=== PATIENT | female | born 1950 | race Caucasian/White ===

== ENCOUNTER 2020-02-17 17:04 | Emergency (ER) | payer MEDICARE, BC, SELFPAY ==
[2020-02-17] VITALS (8 sets, daily range): BP systolic 114–140; BP diastolic 49–71; PULSE 77–88; RESP 14–18; TEMP 37.9; O2SAT 96–99; BMI 34.0
--- NOTE | 2020-02-17 18:22 | CTR_ITS ---
PROCEDURE INFORMATION: Exam: CT Head Without Contrast Exam date and time: 02/17/2020 6:32 PM Age: 69 years old Clinical indication: Altered mental status/memory loss; Confusion or disorientation; Patient HX: C/O MURRAY w AMS; Additional info: Headache altered mental status TECHNIQUE: Imaging protocol: Computed tomography of the head without contrast. Radiation optimization: All CT scans at this facility use at least one of these dose optimization techniques: automated exposure control; mA and/or kV adjustment per patient size (includes targeted exams where dose is matched to clinical indication); or iterative reconstruction. COMPARISON: No relevant prior studies available. RADIATION DOSE METRICS: Total DLP (mGy-cm): 1465.68 FINDINGS: Brain: There is mild cortical atrophy. No hemorrhage. Unremarkable white matter. No mass effect. Cerebral ventricles: No ventriculomegaly. Bones/joints: Unremarkable. No acute fracture. Paranasal sinuses: Visualized sinuses are unremarkable. No fluid levels. Mastoid air cells: Visualized mastoid air cells are well aerated. Soft tissues: Unremarkable. CT/CT head wo con* [id number] IMPRESSION: No acute intracranial abnormality. Radiation Dose CTDIVOL = (mGy): DLP = 1465.68 (mGy-cm)
--- NOTE | 2020-02-17 18:22 | XRR_ITS ---
PROCEDURE INFORMATION: Exam: XR Chest, 1 View Exam date and time: 02/17/2020 6:32 PM Age: 69 years old Clinical indication: Shortness of breath; Additional info: Fever TECHNIQUE: Imaging protocol: XR of the chest Views: 1 view. COMPARISON: CT chest con [id number] 11/03/2018 4:10 PM FINDINGS: Lungs: Unremarkable. No consolidation. Pleural space: Unremarkable. No pleural effusion. No pneumothorax. Heart/Mediastinum: Unremarkable. No cardiomegaly. Bones/joints: Unremarkable. XR/XR chest 1V portable [id number] IMPRESSION: No acute findings.
--- NOTE | 2020-02-17 18:25 | ECG_ITS ---
[facility] Test Date: 2020-02-17 Pat Name: Rubia Mora Department: Room: Gender: Female Contact Center Consultant: : [id number] Requested By: Nabil Mondragon Order Number: [id number] Henry MD: VICKI CANALES Measurements Intervals [place] Rate: 79 P: 26 MT: 180 QRS: -24 QRSD: 92 T: 11 QT: 381 QTc: 439 Interpretive Statements SINUS RHYTHM LOW QRS VOLTAGE IN PRECORDIAL LEADS [QRS DEFLECTION < 1.0 mV IN CHEST LEADS] MINIMAL VOLTAGE CRITERIA FOR LVH, CONSIDER NORMAL VARIANT [MEETS CRITERIA IN ONE OF: R(aVL), S(V1), R(V5), R(V5/V6)+S(V1)] POSSIBLE ANTERIOR MYOCARDIAL INFARCTION , PROBABLY OLD [30 ms Q WAVE IN V3/V4, OR R < 0.2 mV IN V4] No previous ECG available for comparison Electronically Signed On 02-18-2020 19:35:52 NIGHT COORDINATOR by VICKI CANALES [id number]
--- NOTE | 2020-02-17 18:44 | ED_ITS ---
HPI - General Adult General: Chief complaint: General Medical Stated complaint: cough/fever/fatigue/memory issues Time Seen by Provider: 02/17/20 17:39 History of Present Illness: HPI narrative: 69-year-old female with several day history of headache. She reports today she is run a fever of 100.5-1 01 or so. Her reported some mild mental status changes at home, meaning mild confusion. This seems to have passed now. She still complains of a headache. She also complains of a cough, which is dry. She initially denied known Covid exposure, but notes that they had family in from [place] last week, and one of the children had a positive test after they returned home. Onset (ago): day(s) Location: head Radiation: non-radiation Severity: moderate Quality: stabbing Relieving factors: none Exacerbating factors: none Associated symptoms: Reports cough, fevers/chills, headache(s), malaise, nausea and weakness (Generalized); Deny chest pain, dyspnea, palpitations or short of breath Review of Systems Const: Reports: fever(s), chills, body aches and malaise Eyes: Denies: blurry vision Card: Denies: chest pain or palpitations Resp: Denies: dyspnea GI: Reports: nausea : Denies: dysuria Neuro: Reports: headache(s) Physical Exam Const: GENERAL APPEARANCE: well developed ORIENTATION/CONSCIOUSNESS: Yes oriented to person, Yes oriented to place and Yes oriented to time HENMT: COMMON NORMALS: normocephalic, external ears normal and Normal external nose present HEAD & SCALP: normocephalic FACE & SINUS: normal facial exam NOSE: Normal external nose present and No nasal discharge present EXTERNAL EAR: Yes external ears normal THROAT: posterior oropharynx normal; no peritonsillar mass Eye: COMMON NORMALS: Equal, round and reactive pupils present, EOMs intact bilaterally and conjunctivae normal EYELID: eyelids normal CONJUNCTIVA: Yes conjunctivae normal PUPIL: Yes Equal, round and reactive pupils present Neck/C-Spine: GENERAL: No tracheal deviation Chest: COMMONS NORMALS: normal inspection of the chest CHEST: No tenderness Resp: COMMON NORMALS: clear to auscultation bilaterally EFFORT & INSPECTION: No tachypneic, No respiratory distress, No retractions, No uses accessory muscles and No tracheal deviation AUSCULTATION: clear to auscultation bilaterally, no rhonchi, no wheezes and lung sounds not diminished Cardio: COMMON NORMALS: regular rate and regular rhythm RATE: regular rate RHYTHM: regular rhythm HEART SOUNDS: no murmurs PERIPHERAL PULSES: radial pulses present GI: INSPECTION: No abdominal distension AUSCULTATION: No Hyperactive bowel sounds present and No Hypoactive bowel sounds present PALPATION: No Guarding due to palpation present (GI) and No Rigid due to palpation PERCUSSION: no dullness to percussion and no tympanic to percussion Neuro: SENSORIUM/ORIENTATION: Yes oriented to person, Yes oriented to place and Yes oriented to time Psych: COMMON NORMALS: mental status grossly normal Skin: COMMON NORMALS: no rashes or lesions noted GENERAL SKIN EXAM: no rashes or lesions noted Course Vital Signs: Vital signs: Vital Signs Temperature 100.3 F H 02/17/20 17:21 Pulse Rate 82 02/17/20 22:20 Respiratory Rate 18 02/17/20 22:20 Blood Pressure 114/49 02/17/20 22:20 Pulse Oximetry 96 02/17/20 22:20 MDM - General Adult MDM Narrative: Medical decision making narrative: Rapid Covid is negative. Her PCR is pending. White blood cell count is 11.2. Hemoglobin 9.6. Bicarbonate of 20. She is received some IV fluid here. She has received IV Rocephin for a mild urinary tract infection. Her chest x-ray shows no acute findings. Her head CT is negative. She will be discharged home. Lab Data: Labs: Lab Results 02/17/20 02/17/20 02/17/20 Range/Units 19:23 19:41 19:55 WBC 11.2 H (4.0-10.0) 10^3/ uL RBC 3.17 L (4.1-5.3) 10^6/u L Hgb 9.6 L (11.5-15.3) g/dL Hct 31.8 L (37.0-47.0) % MCV 100.3 H (81-99) fL MCH 30.3 (28.0-34.0) pg MCHC 30.2 (30.0-36.0) g/dL RDW 13.2 (12.1-15.1) % Plt Count 282 (130-400) 10^3/c mm MPV 9.8 (7.4-10.4) fL Neut % (Auto) 66.7 % Lymph % (Auto) 24.8 % Carlton % (Auto) 6.7 % Eos % (Auto) 0.9 % Baso % (Auto) 0.4 % Neut # (Auto) 7.44 (1.8-7.7) 10^3/u L Lymph # (Auto) 2.8 (0.8-4.8) 10^3/u L Carlton # (Auto) 0.8 (0.2-0.9) 10^3/u L Eos # (Auto) 0.1 (0.0-0.8) 10^3/u L Baso # (Auto) 0.0 (0.0-0.1) 10^3/u L Nucleated RBC % (a uto) 0 % Nucleated RBCs # 0.0 /100WBC D-Dimer (0-0.59) ug/mIFE U Sodium (136-145) mmol/L Potassium (3.5-5.1) mmol/L Chloride (98-107) mmol/L Carbon Dioxide (22-29) mmol/L Anion Gap (5-19) BUN (8-23) mg/dL Creatinine (0.5-0.9) mg/dL GFR Calculation (90-130) mL/min Glucose (65-115) mg/dL Calculated Osmolal ity (285-295) mOsm/k g Lactate (0.5-2.2) mmol/L Calcium (8.5-10.5) mg/dL Total Bilirubin (0.15-1.2) mg/dL AST (0-32) U/L ALT (0-33) U/L Alkaline Phosphata se (35-105) IU/L Creatine Kinase (26-192) U/L C-Reactive Protein (0.0-4.9) mg/L Total Protein (6.6-8.7) g/dL Albumin (3.5-5.2) g/dL Globulin (1.3-4.6) g/dL Procalcitonin (0-0.5) ng/mL Urine Color Yellow (Yellow) Urine Appearance Clear (CLEAR) Urine pH 9 H (5-7) Ur Specific Gravit y 1.015 (1.005-1.030) Urine Protein Neg (Negative) Urine Glucose (UA) Norm (Normal) Urine Ketones Negative (Negative) Urine Blood Neg (Negative) Urine Nitrate Negative (Negative) Urine Bilirubin Neg (Negative) Prot Sulfosalicyli c Acd Positive (Negative) Urine Urobilinogen Norm (Negative) mg/dL Ur Leukocyte Cally ase 2+ H (Negative) Urine RBC 0-4 H (0-2) /hpf Urine WBC 5-10 H (0-5) /hpf Ur Squamous Epith Cells 0-4 H (0-5) /hpf Amorphous Sediment Not Reportable Urine Bacteria 1+ H (NONE) /hpf Urine Mucus 1+ /hpf SARS-CoV-2 Ag (Rap id) Negative (Negative) 02/17/20 02/17/20 02/17/20 Range/Units 19:55 19:55 20:36 WBC (4.0-10.0) 10^3/ uL RBC (4.1-5.3) 10^6/u L Hgb (11.5-15.3) g/dL Hct (37.0-47.0) % MCV (81-99) fL MCH (28.0-34.0) pg MCHC (30.0-36.0) g/dL RDW (12.1-15.1) % Plt Count (130-400) 10^3/c mm MPV (7.4-10.4) fL Neut % (Auto) % Lymph % (Auto) % Carlton % (Auto) % Eos % (Auto) % Baso % (Auto) % Neut # (Auto) (1.8-7.7) 10^3/u L Lymph # (Auto) (0.8-4.8) 10^3/u L Carlton # (Auto) (0.2-0.9) 10^3/u L Eos # (Auto) (0.0-0.8) 10^3/u L Baso # (Auto) (0.0-0.1) 10^3/u L Nucleated RBC % (a uto) % Nucleated RBCs # /100WBC D-Dimer 0.73 H (0-0.59) ug/mIFE U Sodium 132 L (136-145) mmol/L Potassium 3.6 (3.5-5.1) mmol/L Chloride 101 (98-107) mmol/L Carbon Dioxide 20 L (22-29) mmol/L Anion Gap 14.6 (5-19) BUN 13 (8-23) mg/dL Creatinine 1.2 H (0.5-0.9) mg/dL GFR Calculation 44.7 L (90-130) mL/min Glucose 118 H (65-115) mg/dL Calculated Osmolal ity 275 L (285-295) mOsm/k g Lactate 0.9 (0.5-2.2) mmol/L Calcium 9.0 (8.5-10.5) mg/dL Total Bilirubin 0.2 (0.15-1.2) mg/dL AST 12 (0-32) U/L ALT 9 (0-33) U/L Alkaline Phosphata se 117 H (35-105) IU/L Creatine Kinase 33 (26-192) U/L C-Reactive Protein 216.2 H (0.0-4.9) mg/L Total Protein 7.3 (6.6-8.7) g/dL Albumin 3.4 L (3.5-5.2) g/dL Globulin 3.9 (1.3-4.6) g/dL Procalcitonin 0.47 (0-0.5) ng/mL Urine Color (Yellow) Urine Appearance (CLEAR) Urine pH (5-7) Ur Specific Gravit y (1.005-1.030) Urine Protein (Negative) Urine Glucose (UA) (Normal) Urine Ketones (Negative) Urine Blood (Negative) Urine Nitrate (Negative) Urine Bilirubin (Negative) Prot Sulfosalicyli c Acd (Negative) Urine Urobilinogen (Negative) mg/dL Ur Leukocyte Cally ase (Negative) Urine RBC (0-2) /hpf Urine WBC (0-5) /hpf Ur Squamous Epith Cells (0-5) /hpf Amorphous Sediment Urine Bacteria (NONE) /hpf Urine Mucus /hpf SARS-CoV-2 Ag (Rap id) (Negative) Discharge Plan Discharge Patient Disposition: Home Condition: Stable Prescriptions: New levofloxacin 500 mg tablet 500 mg PO DAILY 7 Days Qty: 7 RF: 0 Discharge Orders: Discharge Order (Routine); Ordered 02/17/20 Ordered By: Nabil Thomas Referrals: Shreya Marcos MD [Primary Care Provider] - 1-3 days Discharge Diet: Advance as tolerated Discharge Activity: Increase activity as tolerated Patient Instructions: Urinary Tract Infection in Women (ED) Activity Restrictions/Additional Instructions: Return for worsening mental status, continued fever greater than 100 despite 2-3 doses of antibiotics, shortness of breath cough or other concerning symptoms. Please continue to quarantine at home until you are second Covid test comes back negative. Discharge Date/Time: 02/17/20 22:21 Coding Level of Care Code ED [employer] Operator for Gerardo Fwd Exam Comprehensive
[2020-02-17] MEDS: sodium chloride 0.9% 500 ML IV (19:29)
[2020-02-17 20:33] LABS: Basophils % 0.4 %; Eosinophils # 0.1 10^3/uL (0.0-0.8); Eosinophils % 0.9 %; Hematocrit 31.8 % (37.0-47.0); Hemoglobin 9.6 g/dL (11.5-15.3); Lymphocytes # 2.8 10^3/uL (0.8-4.8); Lymphocytes % 24.8 %; Mean Corpuscular HGB Conc 30.2 g/dL (30.0-36.0); Mean Corpuscular Hemoglobin 30.3 pg (28.0-34.0); Mean Corpuscular Volume 100.3 fL (81-99); Mean Platelet Volume 9.8 fL (7.4-10.4); Monocytes # 0.8 10^3/uL (0.2-0.9); Monocytes % 6.7 %; Neutrophils # 7.44 10^3/uL (1.8-7.7); Neutrophils % 66.7 %; Nucleated Red Blood Cells % 0 %; Platelet Count 282 10^3/cmm (130-400); Red Blood Count 3.17 10^6/uL (4.1-5.3); Red Cell Distribution Width 13.2 % (12.1-15.1); White Blood Count 11.2 10^3/uL (4.0-10.0)
[2020-02-17 20:39] LABS: SARS Covid-2 Antigen Negative (Negative)
[2020-02-17 20:41] LABS: Add Urine Microscopic? YES; Bilirubin Urine Neg (Negative); Blood Urine Neg (Negative); Glucose Urine UA Norm (Normal); Ketones Urine Negative (Negative); Leukocyte Esterase Urine 2+ (Negative); Nitrate Urine Negative (Negative); Protein Urine Neg (Negative); Specific Gravity, Urine 1.015 (1.005-1.030); Sulfosalicylic Acid Urine Positive (Negative); Urine Appearance Clear (CLEAR); Urine Color Yellow (Yellow); Urobilinogen Urine Norm (Negative); pH Urine 9 (5-7)
[2020-02-17 20:42] LABS: Add Urine Culture? No; Bacteria Urine 1+ /hpf; Mucus Urine 1+ /hpf; RBC Urine 0-4 /hpf (0-2); Squamous Epithelial Cell Urine 0-4 /hpf (0-5)
[2020-02-17 21:07] LABS: Procalcitonin 0.47 ng/mL (0-0.5)
[2020-02-17] MEDS: ondansetron 2 mg/ML SDV 2 mL 4 MG IVP (21:12)
[2020-02-17] MEDS: ketorolac 30 mg/mL INJ IVP (21:14)
[2020-02-17] MEDS: cefTRIAXone 1,000 MG in sodium chloride 0.9% (plus) 50 ML 100 MG IV (21:15)
[2020-02-17 21:19] LABS: Lactate (Lactic Acid level) 0.9 mmol/L (0.5-2.2)
[2020-02-17 21:20] LABS: Alanine Aminotransferase 9 U/L (0-33); Albumin Level 3.4 g/dL (3.5-5.2); Alkaline Phosphatase 117 IU/L (35-105); Anion Gap 14.6 (5-19); Aspartate Amino Transferase 12 U/L (0-32); Blood Urea Nitrogen 13 mg/dL (8-23); C Reactive Protein 216.2 mg/L (0.0-4.9); Carbon Dioxide 20 mmol/L (22-29); Chloride 101 mmol/L (98-107); Creatine Phosphokinase 33 U/L (26-192); Globulin 3.9 g/dL (1.3-4.6); Glomerular Filtration Rate 44.7 mL/min (90-130); Glucose 118 mg/dL (65-115); Osmolality Calculated 275 mOsm/kg (285-295); Potassium 3.6 mmol/L (3.5-5.1); Sodium 132 mmol/L (136-145); Total Bilirubin 0.2 mg/dL (0.15-1.2); Total Protein 7.3 g/dL (6.6-8.7)
[2020-02-17 21:25] LABS: D Dimer 0.73 ug/mIFEU (0-0.59)
[2020-02-19 12:23] LABS: Quest SARS-CoV-2 RNA NOT DETECTED (NOT DETECTED)
--- NOTE | 2020-02-19 18:37 | PC.NURSE ---
Pt called and notified of negative COVID result
--- NOTE | 2020-02-20 08:08 | PC.NURSE ---
pt contacted and given negative results of COVID screening. Pt verbalized understanding.
== END 2020-02-17 22:21 | disposition home or self-care (01) ==
PROVIDERS: Emergency Provider Emergency Medicine; PCP Internal Medicine
DX: R05 Cough (principal); R50.9 Fever, unspecified; R51.9 Headache, unspecified
CPT/HCPCS: 12345; 70450; 71045; 80053; 81001; 82550; 83605; 84145; 85025; 85378; 86140; 87040; 87205; 87426; 87635; 93005; 96365; 96375; 99284; J0696; J1885; J2405; J7040

== ENCOUNTER → 2020-03-20 14:44 | Outpatient (BNVA) | payer MEDICARE, BC, SELFPAY | PROVIDERS: PCP Internal Medicine; Visit Provider Internal Medicine | DX: D64.9 Anemia, unspecified (principal); R13.10 Dysphagia, unspecified; Z01.818 Encounter for other preprocedural examination | CPT/HCPCS: 82607; 82746; 83550; 84443; 85025; 85045 ==

== ENCOUNTER → 2020-03-24 12:17 | Outpatient (BNVA) | payer MEDICARE, BC, SELFPAY | PROVIDERS: PCP Internal Medicine; Visit Provider Internal Medicine | DX: Z20.828 Contact with and (suspected) exposure to other viral communicable diseases (principal); Z01.818 Encounter for other preprocedural examination | CPT/HCPCS: 87635 ==

== ENCOUNTER 2020-03-29 07:54 | Day surgery (SDC) | payer MEDICARE, BC, SELFPAY ==
[2020-03-27 12:41] VITALS: BMI 34.0
[2020-03-29 08:12] VITALS: BP 148/109; PULSE 93; RESP 18; TEMP 36.7; O2SAT 97
[2020-03-29] MEDS: sodium chloride 0.9% 1,000 ML 30 ML IV (08:30)
[2020-03-29 08:35] LABS: Glucose Point of Care 140 mg/dL (70-110)
--- NOTE | 2020-03-29 08:35 | ANES.PREANE2 ---
Pre-Anesthetic Assessment Pre-Anesthetic Assessment: Height/Weight: Height 1.75 m Weight 104.326 kg Temp Pulse Resp BP Pulse Ox 98.1 F 93 18 148/109 97 03/29/20 08:12 03/29/20 08:12 03/29/20 08:12 03/29/20 08:12 03/29/20 08:12 Preop Diagnosis: dysphagia and anemia Proposed Procedure: Operation Date: 03/29/20 09:00 Proposed Procedures p EGD 45143 34782 d64.9(Not Applicable) - Chino Waldrop MD s Colonoscopy(Not Applicable) - Chino Waldrop MD Familial anesthetic complications: None Was Beta Kylie taken within 24 hours: Yes Last intake: Intake NPO > 8 hrs Last Liquid Date 03/28/20 Last Solid Date 03/27/20 Social: Social History: No alcohol and No tobacco Exam: Pre-Anes Outpt Exam: alert, oriented x 3, clear to auscultation bilaterally and regular rate & rhythm Airway: Cervical ROM: WNL MP: 1 Dentition: Full CV/HEM: CV/HEM: HTN GI: GI: GERD Metabolic: Metabolic: DM, Hyperlipidemia and Thyroid Musc/skel: Musc/skel: Fibromyalgia Anesthetic Plan: ASA status: 2 Anesthesia: MAC Risk of > 500 ml blood loss (7ml/kg in children): No Meds/Allergies Current Medications: Current Medications Generic Name Dose Route Start Last Admin Trade Name Freq PRN Reason Stop Dose Admin Sodium Chloride 1,000 mls @ 30 ml s/hr 03/29/20 08:00 03/29/20 08:30 Sodium Chloride 0.9% IV 03/30/20 07:59 30 mls/hr .Q24H NILA Administration PFSH Anesthesia PFSH: Family History (Updated 03/20/20 @ 14:[address]) Father Cancer Heart disease Brother Diabetes Social History (Updated 03/20/20 @ 14:27 by TABITHA Domínguez) Smoking and tobacco status: never smoked Alcohol intake: current Alcohol intake frequency: holidays/special occasions only Marital status: Number of children: 2 service: No History of recent travel: No Data Anesthesia Cardiac Studies: No Data to Display
--- NOTE | 2020-03-29 09:09 | W.PM.OPSUD ---
Surgery/Procedure H&P Update DATE OF PROCEDURE: March 29, 2020 DATE H&P PERFORMED: 03/20/20 PREOP DIAGNOSIS: dysphagia and anemia PLANNED PROCEDURE: Operation Date: 03/29/20 09:00 Proposed Procedures p EGD [id number] d64.9(Not Applicable) - Chino Waldrop MD s Colonoscopy(Not Applicable) - Chino Waldrop MD
[2020-03-29 09:52] VITALS: BP 132/75; PULSE 63; RESP 12; TEMP 36.4; O2SAT 94
--- NOTE | 2020-03-29 09:56 | ANE.PACU2 ---
Inpatient post-anesthesia follow up: Airway intact: Yes Vital signs: Temperature 98.1 F Pulse Rate 93 Respiratory Rate 18 Blood Pressure 148/109 Pulse Oximetry 97 Oxygen Delivery Me thod Room Air Oxygen Flow Rate Fraction of Inspir ed Oxygen Hydration adequate: Yes Nausea and vomiting: No Pain level: 1 Mental status: Baseline
[2020-03-29 10:06] VITALS: BP 132/69; PULSE 61; RESP 16; O2SAT 98
--- NOTE | 2020-03-29 17:13 | ANE.PACU2 ---
Inpatient post-anesthesia follow up: Airway intact: Yes Vital signs: Temperature 97.6 F Pulse Rate 61 Respiratory Rate 16 Blood Pressure 132/69 Pulse Oximetry 98 Oxygen Delivery Me thod Room Air Oxygen Flow Rate Fraction of Inspir ed Oxygen Hydration adequate: Yes Nausea and vomiting: No Pain level: 2 Mental status: Baseline
[2020-04-01 06:31] LABS: H. Pylori / CLO Test Negative
== END 2020-03-29 10:38 | disposition home or self-care (01) ==
PROVIDERS: PCP Internal Medicine; Visit Provider Internal Medicine
PROC: 0DJ08ZZ Inspection of Upper Intestinal Tract, Via Natural or Artificial Opening Endoscopic (ICD-10-PCS; CPT 43235; principal; 2020-03-29 09:00)
PROC: 0DJD8ZZ Inspection of Lower Intestinal Tract, Via Natural or Artificial Opening Endoscopic (ICD-10-PCS; CPT 45378; 2020-03-29 09:00)
DX: R13.10 Dysphagia, unspecified (principal); D64.9 Anemia, unspecified; I10 Essential (primary) hypertension; K21.9 Gastro-esophageal reflux disease without esophagitis; E11.9 Type 2 diabetes mellitus without complications; E78.5 Hyperlipidemia, unspecified; M79.7 Fibromyalgia
CPT/HCPCS: 12345; 36416; 43239; 45378; 82962; 87077; J2704; J7030

== ENCOUNTER → 2020-08-12 15:00 | Outpatient (BNVA) | payer MEDICARE, BC, SELFPAY | PROVIDERS: PCP Internal Medicine; Visit Provider Nurse Practitioner Family | DX: N20.9 Urinary calculus, unspecified (principal); N39.0 Urinary tract infection, site not specified; N39.46 Mixed incontinence | CPT/HCPCS: 81003 ==

== ENCOUNTER 2020-09-18 14:53 | Outpatient (CLI) | payer MEDICARE, BC, SELFPAY ==
--- NOTE | 2020-09-18 15:00 | XR_ITS ---
WS: [id number] KUB, AP view, 09/18/2020 Clinical Data: N20.9 - Urinary calculus, unspecified Comparison: KUB, 09/21/2018 Findings: No abnormal intraabdominal masses or calcifications are seen. There is no dilatated small bowel or ev idence of obstruction. There are phleboliths in the true pelvis. There is a large amount of fecal material throughout the co cain. XR/XR KUB [id number] Impression: Negative KUB.
== END 2020-09-18 14:54 | disposition home or self-care (01) ==
LOC: RAD 15:01
PROVIDERS: PCP Internal Medicine; Visit Provider Urology
DX: N20.9 Urinary calculus, unspecified (principal)
CPT/HCPCS: 74018; 81003

== ENCOUNTER 2020-10-09 12:54 | Outpatient (CLI) | payer MEDICARE, BC, SELFPAY ==
--- NOTE | 2020-10-09 13:00 | CT_ITS ---
WS: [id number] CT ABDOMEN AND PELVIS NONCONTRAST HISTORY: UROLITHIASIS TECHNIQUE: Imaging performed through the abdomen and pelvis. Coronal and sagittal reformats are submi tted. All CT scans at [facility] use at least one of these dose optimization techniques: automated exposure control; mA and/or kV adjustment per patient size (includes targeted exams where d ose is matched to clinical indication); or iterative reconstruction. DLP: 1465.41 mGy.cm COMPARISON: 03/01/2018 Lower thorax: Lung bases are clear. Visualized heart is normal. Small hiatal hernia. Liver: Mildly enlarged liver. Hepatic steatosis. No mass identified. No bile duct dilatation. Gallbladder: Normal gallbladder. Pancreas: Normal size and attenuation. Normal pancreatic duct. No pancreatitis or mass. Spleen: Normal. Adrenal glands: Normal. No mass. Right kidney: Moderate perinephric stranding and mild enlargement of the kidney. Moderate to severe R IGHT hydroureteronephrosis. Ureter is tortuous and dilated area to a 7 mm calcification in the distal ureter. Calcification at the level of the pelvic brim. There is an additional calcification near the ureteral insertion which I believe is a phlebolith and external to the ureter. Left kidney: Normal size kidney. Exophytic 16 mm mass from the inferior pole of the kidney has been p resent on prior studies and probably represents a cyst. Aorta: Mild atherosclerosis abdominal aorta with no aneurysm. No free fluid, intraperitoneal air or significant lymphadenopathy. GI tract: Prior appendectomy. Constipation with no obstruction. Abdominal wall: Negative. No hernia. Pelvis: Atrophic uterus. No adnexal mass. Negative urinary bladder. Osseous structures: Unremarkable. CT/CT kidney stone [id number] IMPRESSION: 1. Moderate to severe RIGHT hydroureteronephrosis secondary to a 7 mm calcific ation in the distal ureter. 2. Prior appendectomy. 3. No free fluid.
== END 2020-10-09 12:55 | disposition home or self-care (01) ==
PROVIDERS: PCP Internal Medicine; Visit Provider Urology
DX: N20.9 Urinary calculus, unspecified (principal); N13.30 Unspecified hydronephrosis; Q42.8 Congenital absence, atresia and stenosis of other parts of large intestine
CPT/HCPCS: 74176; 81003; 87635

== ENCOUNTER 2020-10-14 14:25 | Day surgery (SDC) | payer MEDICARE, BC, SELFPAY ==
[2020-10-11 13:43] VITALS: BMI 32.5
[2020-10-14] VITALS (10 sets, daily range): BP systolic 128–167; BP diastolic 67–83; PULSE 60–74; RESP 16–20; TEMP 36.6–36.9; O2SAT 91–98
--- NOTE | 2020-10-14 | SCC_ITS ---
Procedure Done: 1. Cystoscopy with right retrograde ureteropyelogram 2. Ureteroscopy, laser lithotripsy, stent 68.3 seconds of fluoroscopic guidance, for a cumulative dose of 9.93 mGy, was provided to Dr. Mar by the radiology department. C-arm images of the abdomen were saved for the patient's permanent record. [facility]
--- NOTE | 2020-10-14 15:12 | SC_ITS ---
WS: [id number] INTRAOPERATIVE TECHNIQUE: 6 Spot fluoroscopic images for intraoperative purposes. FLUOROSCOPY TIME: 68.3 seconds CLINICAL INFORMATION: Right ureteroscopy COMPARISON: None. FINDINGS: Contrast opacification right ureter and renal pelvis with stent deployment. Moderate right hydronephr osis. SC/C-arm FL for Urology IMPRESSION: Images obtained for intraoperative purposes.
[2020-10-14] MEDS: sodium chloride 0.9% 1,000 ML 30 ML IV (15:24)
[2020-10-14 15:28] LABS: Glucose Point of Care 100 mg/dL (70-110)
[2020-10-14] MEDS: fentaNYL 50 mcg/mL INJ 2mL IVP (15:46)
--- NOTE | 2020-10-14 16:05 | ANES.PREANE2 ---
Pre-Anesthetic Assessment Pre-Anesthetic Assessment: Height/Weight: Height 1.75 m Weight 99.79 kg Resp Pulse Ox 16 98 10/14/20 15:46 10/14/20 15:46 Preop Diagnosis: Right distal ureteral stone with obstruction, refractory Proposed Procedure: Operation Date: 10/14/20 16:15 Proposed Procedures p Laser Lithotripsy(Right) - David Mar MD s Cystoscopy [id number] 09012 N20.9(Right) - David Mar MD s Retrograde Pyelogram(Right) - David Mar MD s Ureteroscopy(Right) - David Mar MD s Ureteral Stent Placement(Right) - David Mar MD Was Beta Kylie taken within 24 hours: Yes Was Clonidine taken within 24 hours: N/A Last intake: Intake Last Liquid Date 10/13/20 Last Liquid Time 23:00 Last Solid Date 10/13/20 Last Solid Time 23:00 Social: Social History: No alcohol and No tobacco Exam: Pre-Anes Outpt Exam: alert, oriented x 3, clear to auscultation bilaterally and regular rate & rhythm Airway: Submandibular: WNL Cervical ROM: WNL MP: 2 Dentition: False CV/HEM: CV/HEM: Anemia and HTN GI: Comments: dysphagia Metabolic: Metabolic: DM Anesthetic Plan: ASA status: 3 Anesthesia: General Risk of > 500 ml blood loss (7ml/kg in children): No Meds/Allergies Current Medications: Current Medications Generic Name Dose Route Start Last Admin Trade Name Freq PRN Reason Stop Dose Admin Fentanyl 50 mcg 10/14/20 15:13 10/14/20 15:46 Fentanyl 50 Mcg/ Ml Inj 2ml IVP 25 mcg Q10M PRN Administration Preop Pain Sodium Chloride 1,000 mls @ 30 ml s/hr 10/14/20 15:15 10/14/20 15:24 Sodium Chloride 0.9% IV 10/15/20 15:14 30 mls/hr .Q24H NILA Administration PFSH Anesthesia PFSH: Medical History Mixed stress and urge urinary incontinence Recurrent UTI Urolithiasis Family History Father Cancer Heart disease Brother Diabetes Social History Smoking and tobacco status: never smoked Alcohol intake: current Alcohol intake frequency: holidays/special occasions only Marital status: Number of children: 2 service: No History of recent travel: No Data Anesthesia Other Labs: Laboratory Results - last 48 hr 10/14/20 15:23 POC Glucose 100 Cardiac Studies: No Data to Display
[2020-10-14 18:11] LABS: Glucose Point of Care 89 mg/dL (70-110)
[2020-10-14] MEDS: HYDROmorphone 1 mg/mL INJ 1 mL 0.5 MG IVP (18:23)
--- NOTE | 2020-10-14 18:51 | W.PM.OPSUD ---
Surgery/Procedure H&P Update DATE OF PROCEDURE: October 14, 2020 DATE H&P PERFORMED: 10/09/20 H&P UPDATE INFORMATION: I have reviewed H&P completed within last 30 days, I have examined patient prior to procedure, No changes to prior documentation and H&P is in [facility] EMR on date indicated CHANGES TO PREVIOUS DOCUMENTATION: 2 areas of delay before surgery. 1. Running late and in OR before my block started and 2. Emergency case bumped her just before her case began. She was very gracious. I explained the details of why this could not be avoided PREOP DIAGNOSIS: Right distal ureteral stone with obstruction, refractory PLANNED PROCEDURE: Operation Date: 10/14/20 16:15 Proposed Procedures p Laser Lithotripsy(Right) - David Mar MD s Cystoscopy [id number] 87900 N20.9(Right) - David Mar MD s Retrograde Pyelogram(Right) - MD amari Riojas Ureteroscopy(Right) - MD amari Riojas Ureteral Stent Placement(Right) - David Mar MD
--- NOTE | 2020-10-14 18:54 | P.OP_ITS ---
Operative Report Date of procedure: October 14, 2020 Pre-op Diagnosis: Right distal ureteral stone with obstruction, refractory Post-op diagnosis: same Post-op Diagnosis: 1. Right distal ureteral stone with obstruction, refractory 2 Severely inflamed ureter with tight narrowing below the stone inaccessible with ureteroscopy. Stent placement was successful though. Procedure Done: 1. Cystoscopy with right retrograde ureteropyelogram 2. Ureteroscopy, RIGHT ureteral stent Pathology: none sent Surgeon: Zaid Anesthesia: General Estimated blood loss: Minimal Urine output: Not measured Complications: None Condition: stable Disposition: PACU Brief History: Rubia is a very pleasant 70-year-old white female recently diagnosed with a large obstructing right ureteral calculus near the junction of the middle and distal thirds of the ureter. Moderate to severe hydronephrosis and hydroureter was identified. She is admitted now for endoscopic treatment of the stone. Procedure: After routine preoperative evaluation examination and obtaining of informed consent she was taken to the operating suite on 10/06/2020 where general anesthesia was administered without difficulty after appropriate timeout was performed, SCDs confirmed to be functioning, preoperative antibiotics administered, beta-aminata protocol confirmed. Prepped and draped in usual sterile and dorsolithotomy position paying careful attention to avoiding pressure points. 21 [place] cystoscope with 30 degree lens was introduced into urethra meatus and advanced to the bladder under videoscopy. No gross abnormalities in the bladder were identified. An 8 [place] cone-tip catheter was intubated into the right ureteral orifice for right retrograde ureteropyelogram demonstrating normal course and caliber of the distal ureter until approximately 1.5 to 2 cm below the stone where there was a very distinct abrupt change in caliber of the lumen of the ureter with a very thin narrowed area and just above that very dilated area around the stone. Some contrast but not a lot was able to be manipulated beyond that point. Flexible tip guidewire was advanced up the right ureter and bypassed the stone curling in the area proximally of the kidney. The distal ureter was then dilated with a 15 [place] 4 cm balloon with no waist. The wire was secured to the drapes as a safety wire and a 7.5 [place] offset semirigid ureteroscope was advanced next to the wire up the ureter. It could not be easily manipulated past the narrow area with careful proximal pressure. A second guidewire was then passed bypassing the stone and it was passed through the ureteroscope in hopes of facilitating passage of the scope up the ureter but it was also unsuccessful. Several maneuvers were made to try to manipulate this tight area but all unsuccessful. Based on the retrograde findings, ureteroscopic findings, and the degree of dilation seen on CT scan it was felt that this area needed passive dilation with a stent and therefore the further attempt at passing the scope was abandoned in order to avoid potentially damaging the ureter. The working wire was removed as was the ureteroscope. The cystoscope was then backloaded over the safety wire and a open-ended ureteral catheter was advanced through the cystoscope over the guidewire up into the area of the renal pelvis. The wire was removed and contrast was injected to confirm appropriate position of the wire. The wire was replaced the catheter removed and a 7 [place] by 28 cm double-pigtail stent was advanced over the guidewire into appropriate position as confirmed via fluoroscopy and cystoscopy. The stent was confirmed to be draining urine vigorously Bladder was drained and the procedure was completed. PLANS: 1. Maintain stent for approximately 2 weeks before considering repeat of treatment either via ureteroscopy or ESWL or combination of both under the same anesthesia. 2. She may require very prolonged stent indwelling for healing of this very inflamed area.
[2020-10-14] MEDS: HYDROcodone-acetaminophen 5-325 mg Tablet 1 TAB PO (20:59)
--- NOTE | 2020-10-15 07:18 | ANE.PACU2 ---
Inpatient post-anesthesia follow up: Airway intact: Yes Vital signs: Temperature 98 F Pulse Rate 62 Respiratory Rate 18 Blood Pressure 160/71 Pulse Oximetry 95 Oxygen Delivery Me thod Room Air Oxygen Flow Rate 6 Fraction of Inspir ed Oxygen Hydration adequate: Yes Nausea and vomiting: No Pain level: 2 Mental status: Baseline
== END 2020-10-14 21:25 | disposition home or self-care (01) ==
PROVIDERS: PCP Internal Medicine; Visit Provider Urology
PROC: 0TJB8ZZ Inspection of Bladder, Via Natural or Artificial Opening Endoscopic (ICD-10-PCS; CPT 52000; 2020-10-14 16:05)
PROC: (CPT 74420; 2020-10-14 16:05)
PROC: 0TJ98ZZ Inspection of Ureter, Via Natural or Artificial Opening Endoscopic (ICD-10-PCS; CPT 52351; 2020-10-14 16:05)
PROC: (CPT 50605; 2020-10-14 16:05)
DX: N20.1 Calculus of ureter (principal); N13.8 Other obstructive and reflux uropathy; I10 Essential (primary) hypertension; E11.9 Type 2 diabetes mellitus without complications
CPT/HCPCS: 52332; 52351; 36416; 76000; 82962; 96374; 96375; C2625; J1100; J1170; J2405; J2704; J3010; J3490; J7030

== ENCOUNTER 2020-10-23 07:07 | Outpatient (CLI) | payer MEDICARE, BC, SELFPAY ==
--- NOTE | 2020-10-23 07:00 | XR_ITS ---
WS: [id number] ABDOMEN 1 VIEW(S) HISTORY: URETERAL CALCULUS COMPARISON: 10/09/2020 and 09/18/2020 Increased amount of air fecal material throughout the colon. Colon is tortuous Placement of a RIGHT ureteral stent. Double pigtail stent appears in good position. There are a few c alcifications adjacent to the distal stent which are unchanged in position and probably phleboliths. No bone abnormality. XR/XR KUB [id number] IMPRESSION: Unchanged position of the double pigtail RIGHT ureteral stent. No ureteral calc ifications identified.
== END 2020-10-23 07:08 | disposition home or self-care (01) ==
PROVIDERS: PCP Internal Medicine; Visit Provider Urology
DX: N20.1 Calculus of ureter (principal); Z96.0 Presence of urogenital implants; Z20.822 Contact with and (suspected) exposure to COVID-19
CPT/HCPCS: 74018; 81003; 87635

== ENCOUNTER 2020-10-28 09:49 | Day surgery (SDC) | payer MEDICARE, BC, SELFPAY ==
[2020-10-25 15:11] VITALS: BMI 32.5
[2020-10-28] VITALS (9 sets, daily range): BP systolic 119–180; BP diastolic 64–88; PULSE 53–87; RESP 12–19; TEMP 36.1–37.1; O2SAT 95–100
--- NOTE | 2020-10-28 10:04 | XRR_ITS ---
PROCEDURE INFORMATION: Exam: XR Abdomen Exam date and time: 10/28/2020 10:37 AM Age: 70 years old Clinical indication: Screening exam; Other: Preop eswl/ureteroscopy TECHNIQUE: Imaging protocol: XR of the abdomen. Views: Frontal supine view of the abdomen. 1 View. COMPARISON: CR XR KUB [id number] 10/23/2020 7:25 AM FINDINGS: Tubes, catheters and devices: Stable right internalized double-J ureteral stent placement. Gastrointestinal tract: Unremarkable. No bowel dilation. Organs: No definite ureteral calculus identified. Vasculature: Calcified phleboliths are present in the lower pelvis bilaterally. Bones/joints: No acute abnormality identified. XR/XR KUB [id number] IMPRESSION: 1. Stable right internalized double-J ureteral stent placement. 2. No definite ureteral calculus identified.
[2020-10-28] MEDS: sodium chloride 0.9% 1,000 ML 30 ML IV (11:03)
[2020-10-28 11:33] LABS: Glucose Point of Care 130 mg/dL (70-110)
--- NOTE | 2020-10-28 12:09 | ANES.PREANE2 ---
Pre-Anesthetic Assessment Pre-Anesthetic Assessment: Height/Weight: Height 1.75 m Weight 99.79 kg Temp Pulse Resp BP Pulse Ox 97.8 F 87 18 130/78 95 10/28/20 11:09 10/28/20 11:09 10/28/20 11:09 10/28/20 11:09 10/28/20 11:09 Preop Diagnosis: Impacted right ureteral calculus, Status post stenting Proposed Procedure: Operation Date: 10/28/20 12:00 Proposed Procedures p Laser Lithotripsy 32311 00860 01608 n20.1(Not Applicable) - David Mar MD s Cystoscopy(Not Applicable) - MD amari Riojas Retrograde Pyelogram(Right) - MD amari Riojas Ureteroscopy(Not Applicable) - MD amari Riojas Ureteral Stent Exchange(Not Applicable) - David Mar MD Was Beta Kylie taken within 24 hours: Yes Was Clonidine taken within 24 hours: N/A Last intake: Intake Last Liquid Date 10/27/20 Last Liquid Time 23:30 Last Solid Date 10/27/20 Last Solid Time 23:30 Social: Social History: No alcohol and No tobacco Exam: Pre-Anes Outpt Exam: alert, oriented x 3, clear to auscultation bilaterally and regular rate & rhythm Airway: Submandibular: WNL Cervical ROM: WNL MP: 2 Dentition: False CV/HEM: CV/HEM: Anemia and HTN GI: GI: GERD Metabolic: Metabolic: DM and Thyroid Musc/skel: Musc/skel: Fibromyalgia Neuropsych: Neuropsych: Anxiety and Depression Anesthetic Plan: ASA status: 3 Anesthesia: General Risk of > 500 ml blood loss (7ml/kg in children): No Meds/Allergies Current Medications: Current Medications Generic Name Dose Route Start Last Admin Trade Name Freq PRN Reason Stop Dose Admin Sodium Chloride 1,000 mls @ 30 ml s/hr 10/28/20 11:00 10/28/20 11:03 Sodium Chloride 0.9% IV 10/29/20 10:59 30 mls/hr .Q24H NILA Administration PFSH Anesthesia PFSH: Medical History (Updated 10/24/20 @ 17:40 by David Mar MD) Fibromyalgia Mixed stress and urge urinary incontinence Recurrent UTI Urolithiasis Family History Father Cancer Heart disease Brother Diabetes Social History Alcohol intake: current Alcohol intake frequency: holidays/special occasions only Marital status: Number of children: 2 service: No History of recent travel: No Data Anesthesia Other Labs: Laboratory Results - last 48 hr 10/28/20 11:17 POC Glucose 130 H Cardiac Studies: No Data to Display
--- NOTE | 2020-10-28 12:14 | W.PM.OPSUD ---
Surgery/Procedure H&P Update DATE OF PROCEDURE: October 28, 2020 DATE H&P PERFORMED: 10/23/20 H&P UPDATE INFORMATION: I have reviewed H&P completed within last 30 days, I have examined patient prior to procedure, Changes to prior documentation as noted here and H&P is in [facility] E[facility] on date indicated CHANGES TO PREVIOUS DOCUMENTATION: Since last visit decision made to add extracorporeal shockwave lithotripsy first for treating the stone and then follow with the planned procedure of ureteroscopy possible stone fragment removal assessment of impaction site etc. Informed consent was obtained for this procedure after detailed explanation of benefits risk potential complications rationale, tactical approach advantage. and patient agreed. PREOP DIAGNOSIS: Impacted right ureteral calculus, Status post stenting PLANNED PROCEDURE: Operation Date: 10/28/20 12:00 Proposed Procedures p Laser Lithotripsy 41638 [id number] n20.1(Not Applicable) - David Mar MD s Cystoscopy(Not Applicable) - David Mar MD s Retrograde Pyelogram(Right) - David Mar MD s Ureteroscopy(Not Applicable) - David Mar MD s Ureteral Stent Exchange(Not Applicable) - David Mar MD
--- NOTE | 2020-10-28 12:15 | P.OP_ITS ---
Operative Report Date of procedure: October 28, 2020 Pre-op Diagnosis: Impacted right ureteral calculus, Status post stenting Post-op Diagnosis: Impacted right mid ureteral stone status post stenting Procedure Done: 1. Extracorporeal shockwave lithotripsy to right mid ureteral stone 2. Right ureteroscopy, laser lithotripsy of impaction/stone 3. Stent replacement, right ureteral Surgeon: Zaid Ornamenter Hand: [place] lithotripsy Magistrate Judge Anesthesia: General Estimated blood loss: Minimal Urine output: Not measured Condition: stable Disposition: PACU Brief History: Rubia is a very pleasant 70-year-old white female with history of stones who was recently discovered to have an impacted right mid ureteral stone with moderate to severe right hydronephrosis and hydroureter down to the stone. Attempt at ureteroscopy, selected because of likely impaction was unsuccessful in getting this scope all the way to the stone and therefore stent was left indwelling for passive dilation. After a lot of conversation regarding options including repeat ureteroscopy versus a combination ESWL followed by ureteroscopy versus ESWL alone it was decided to proceed with combination procedure ESWL first to be followed by ureteroscopy to assess the status of the ureter. She has had a terrible time in dealing with the stent but she does understand and has expressed so that she may and most likely will end up with a stent postop and possibly keep it for an extended period of time depending upon the status of the ureter Procedure: After routine preoperative evaluation examination and obtaining of informed consent she was taken to the operating suite on 10/28/2020 where general anesthesia was administered without difficulty after appropriate timeout was performed, SCDs confirmed to be functioning, preoperative antibiotics administ ered, beta-aminata protocol confirmed. Prepped and draped in usual sterile fashion in dorsolithotomy position paying careful attention to avoiding pressure points. 21 [place] Island[place] cystoscope with 30 degree lens was introduced into the urethra meatus and advanced into the bladder under videoscopy. The stent was grasped with grasping forceps by the very tip and withdrawn through the urethral meatus where a guidewire was passed without difficulty up into the kidney and the stent removed. The wire was secured to the drapes as a safety wire. A seven [place] Island[place] offset semirigid ureteroscope was then advanced up the right ureter next to the wire bypassing the area without difficulty. The scope was withdrawn back to the level of the stone and it was clear that the stone was completely impacted in the ureteral wall. There was a fairly dense membranous covering of this. For that reason several small instruments were utilized to try to peel away the mucosal covering but these were unsuccessful. For that reason a 200 ?m holmium laser fiber was then utilized to break through the covering of the stone. The stone did appear to be partially broken and the laser was utilized to free the embedded/impacted particles from the wall. Eventually it appeared that all the fragments were removed from the impaction site and a few of the larger pieces were further fragmented with the laser. A parachute basket was passed several times to remove all the fragments. Final inspection revealed no additional evidence of intramural stone. There is significant amount of trauma from the impaction site and treatment but no perforation etc. After confirmation of all the fragments being removed by passing the scope into the more proximal ureter and seeing none the scope was withdrawn, final inspection revealed the changes mentioned above and the scope was removed. The cystoscope was then backloaded over the safety wire and a seven [place] by 28 cm double-pigtail stent was advanced without difficulty over the guidewire through the cystoscope into appropriate position as confirmed via fluoroscopy and cystoscopy. The bladder was drained and the procedure was completed. Tolerated procedure well without complications and was awakened in the operating room and returned recovery in stable condition. PLANS: 1. Anticipate discharge from outpatient surgery 2. Plan on leaving the stent in for least a couple weeks and if possible longer for healing of this very inflamed impaction site. 3. Pain medication as needed
[2020-10-28] MEDS: levofloxacin-dextrose 5 % 500 MG/100 ML PREMIX 100 MG IV (12:32)
[2020-10-28] MEDS: fentaNYL 50 mcg/mL INJ 2mL IVP (14:01)
[2020-10-28] MEDS: HYDROcodone-acetaminophen 5-325 mg Tablet 1 TAB PO (14:49)
--- NOTE | 2020-10-28 17:05 | ANE.PACU2 ---
Inpatient post-anesthesia follow up: Airway intact: Yes Vital signs: Temperature 97.0 F Pulse Rate 55 Respiratory Rate 16 Blood Pressure 119/82 Pulse Oximetry 95 Oxygen Delivery Me thod Room Air Oxygen Flow Rate 3 Fraction of Inspir ed Oxygen Hydration adequate: Yes Nausea and vomiting: No Pain level: 2 Mental status: Baseline
== END 2020-10-28 15:40 | disposition home or self-care (01) ==
PROVIDERS: PCP Internal Medicine; Visit Provider Urology
PROC: (CPT 50590; principal; 2020-10-28 12:00)
PROC: 0TJB8ZZ Inspection of Bladder, Via Natural or Artificial Opening Endoscopic (ICD-10-PCS; CPT 52000; 2020-10-28 12:00)
PROC: 0TJ98ZZ Inspection of Ureter, Via Natural or Artificial Opening Endoscopic (ICD-10-PCS; CPT 52351; 2020-10-28 12:00)
PROC: (CPT 50590; 2020-10-28 12:00)
PROC: (CPT 50590; 2020-10-28 12:00)
DX: N20.1 Calculus of ureter (principal); I10 Essential (primary) hypertension; K21.9 Gastro-esophageal reflux disease without esophagitis; E11.9 Type 2 diabetes mellitus without complications; M79.7 Fibromyalgia; F41.9 Anxiety disorder, unspecified; F32.9 Major depressive disorder, single episode, unspecified
CPT/HCPCS: 50590; 52332; 36416; 74018; 82365; 82962; 88300; C2625; J1956; J2405; J2704; J2710; J3010; J3490; J7030

== ENCOUNTER 2020-11-04 12:14 | Emergency (ER) | payer MEDICARE, BC, SELFPAY ==
[2020-11-04 12:55] VITALS: BP 125/72; PULSE 81; RESP 16; TEMP 36.9; O2SAT 95; BMI 36.0
--- NOTE | 2020-11-04 13:26 | XRR_ITS ---
PROCEDURE INFORMATION: Exam: XR Left Ankle Exam date and time: 11/04/2020 1:26 PM Age: 70 years old Clinical indication: Injury or trauma; Fall; Blunt trauma; Ankle; Left; Injury details: Lt knee; Prior surgery; Additional info: Injury/swelling TECHNIQUE: Imaging protocol: XR Left ankle. Views: 3 or more views. COMPARISON: No relevant prior studies available. FINDINGS: Bones/joints: Normal. Soft tissues: Soft tissue swelling around the ankle. XR/XR ankle LT min 3V* [id number] IMPRESSION: Soft tissue swelling around the ankle. No acute osseous findings.
--- NOTE | 2020-11-04 14:55 | ED_ITS ---
HPI - Extremity Injury (Lower) General: Chief Complaint: Extremity Injury, Lower Stated Complaint: L Lower leg Time Seen by Provider: 11/04/20 14:15 Source: patient Mode of arrival: wheelchair Limitations: no limitations History of Present Illness: HPI Narrative: Patient is a 70-year-old female who presents to ED daily along with her for complaints of left foot and ankl e pain. Patient tells me she struck her anterior [place] in a closet approximately 2 weeks ago. She states during that incident she did stumble and thinks maybe she twisted her ankle and foot. She states she was still able to bear weight after the incident but has slowly and progressively noticed pain to the medial aspect of her ankle and foot. She is still able to ambulate but with the help of a cane. complaint: leg injury, ankle injury and foot injury Onset (ago): week(s) Place: home Severity: moderate Relieving factors: immobilization Exacerbating factors: weight bearing, movement and palpation Context: direct blow and other (twisting) Associated symptoms: Reports no associated symptoms Other symptoms: none Review of Systems Resp: Denies: dyspnea Musc: Reports: extremity pain (L foot) and joint pain (L ankle) Skin/Breast: Denies: new lesions or changes in skin color Neuro: Denies: numbness in extremities, weakness in extremities or sensory changes PFSH ED PFSH: Medical History (Updated 11/04/20 @ 15:43 by LAKISHA Pendleton) Fibromyalgia Mixed stress and urge urinary incontinence Recurrent UTI Urolithiasis Family History Father Cancer Heart disease Brother Diabetes Social History Alcohol intake: current Alcohol intake frequency: holidays/special occasions only Marital status: Number of children: 2 service: No History of recent travel: No Physical Exam Const: COMMON NORMALS: no acute distress, patient oriented x3, no limitations and alert NUTRITIONAL APPEARANCE: obese ORIENTATION/CONSCIOUSNESS: Yes awake, Yes oriented to person, Yes oriented to place and Yes oriented to time Extremity: GENERAL: Yes normal exam except as noted OTHER: bilateral LE edema; patient has no tenderness or swelling to L mid tibia where she initially struck leg; no swelling/redness/calf pain; she reports tenderness to L medial ankle and foot; no swelling, ecchymosis, or deformity noted; NV intact Neuro: COMMON NORMALS: patient oriented x3, moves all extremities, no focal motor deficits and no sensory deficits noted SENSORIUM/ORIENTATION: Yes alert, Yes oriented to person, Yes oriented to place and Yes oriented to time Skin: COMMON NORMALS: no rashes or lesions noted GENERAL SKIN EXAM: no rashes or lesions noted TRAUMA: no lacerations or abrasions Course Vital Signs: Vital signs: Vital Signs Temperature 98.5 F 11/04/20 12:55 Pulse Rate 81 11/04/20 12:55 Respiratory Rate 16 11/04/20 12:55 Blood Pressure 125/72 11/04/20 12:55 Pulse Oximetry 95 11/04/20 12:55 MDM - Extremity Injury (Lower) MDM Narrative: Medical decision making narrative: XRs negative. Recommend cont inue conservative treatment/RICE therapy at home. Follow up with PCP in 1-2 wks for continued pain. Imaging Data^: XR L ankle: Radiologist's impression: [facility] [address] XRay Report Signed Patient: Rubia Mora Unit #: [id number] : 1950 Age/Sex: 70 / F ADM Date: 11/04/20 Loc: ER Room/Bed: Attending Dr: Ordering Provider/Ordering MD: Alma Rosa Gonzales Date of Service: 11/04/20 Procedure(s): XR ankle LT min 3V* [id number] Accession Number(s): [id number] Report Number: [id number] PROCEDURE INFORMATION: Exam: XR Left Ankle Exam date and time: 11/04/2020 1:26 PM Age: 70 years old Clinical indication: Injury or trauma; Fall; Blunt trauma; Ankle; Left; Injury details: Lt knee; Prior surgery; Additional info: Injury/swelling TECHNIQUE: Imaging protocol: XR Left ankle. Views: 3 or more views. COMPARISON: No relevant prior studies available. FINDINGS: Bones/joints: Normal. Soft tissues: Soft tissue swelling around the ankle. XR/XR ankle LT min 3V* [id number] IMPRESSION: Soft tissue swelling around the ankle. No acute osseous findings. Dictated By: Denzel Truong DO Signed By: Denzel Truong DO Signed Date/Time: 11/04/201534 DD/ 153 XR L foot: Radiologist's impression: [id number], [place] [address]AImq ReportSigned Patient: Rubia Mora #: [id number]: 1950cct#:[id number]/Sex: 70 / FADM Date: 11/04/20Loc: ERRoom/Bed:Attending Dr: Ordering Provider/Ordering MD: Alma Rosa Gonzales Date of Service: 11/04/20 Procedure(s): XR foot LT min 3V* [id number] Accession Number(s): [id number] Report Number: [id number] PROCEDURE INFORMATION: Exam: XR Left Foot Exam date and time: 11/04/2020 2:55 PM Age: 70 years old Clinical indication: Pain and injury or trauma; Fall; Sprain or strain; Foot; Left; Additional info: Fall/pain TECHNIQUE: Imaging protocol: XR Left foot. Views: 3 or more views. COMPARISON: CR XR ankle LT min 3V* [id number] 11/04/2020 2:19 PM FINDINGS: Bones/joints: Normal. Soft tissues: Soft tissue swelling along the dorsal foot. XR/XR foot LT min 3V* [id number] IMPRESSION: No acute osseous abnormalities of the left foot. Dictated By:Denzel Truong DOSigned By:Denzel Truong DOSigned Date/Time:11/04/201537DD/ 35 Discharge Plan Discharge Patient Disposition: Home Clinical Impression: Sprain of left foot Qualifiers: Encounter type: initial encounter Qualified Code(s): S93.602A - Unspecified sprain of left foot, initial encounter Condition: Stable Prescriptions: No Action famotidine 40 mg tablet 40 mg PO DAILY RF: 0 nitrofurantoin monohyd/m-cryst 100 mg capsule See Rx Instructions .ROUTE .COMPLEX Qty: 60 RF: 1 furosemide 40 mg Tablet 40 mg PO DAILY RF: 0 buspirone 5 mg Tablet 5 mg PO BID RF: 0 cetirizine 10 mg Tablet 10 mg PO DAILY RF: 0 alprazolam 1 mg Tablet 1 mg PO TID PRN (Reason: Anxiety) RF: 0 sumatriptan succinate [Imitrex] 100 mg Tablet 100 mg PO Q2H PRN (Reason: Headache) RF: 0 simvastatin 10 mg Tablet 10 mg PO DAILY RF: 0 atenolol 25 mg Tablet 25 mg PO DAILY RF: 0 amitriptyline 50 mg tablet 25 mg PO DAILY RF: 0 levothyroxine 75 mcg Tablet 75 mcg PO DAILY RF: 0 docusate sodium [Colace] 100 mg Capsule 100 mg PO DAILY RF: 0 bisacodyl 5 mg Tablet 5 mg PO DAILY RF: 0 duloxetine [Cymbalta] 60 mg Capsule,Delayed Release(Dr/Ec) 60 mg PO BID RF: 0 aripiprazole [Abilify] 2 mg Tablet 2 mg PO DAILY RF: 0 diclofenac sodium 1 % Gel 2 g TOPICAL QID RF: 0 cholecalciferol (vitamin D3) [Vitamin D3] 125 mcg (5,000 unit) Tablet 125 mcg PO UNK RF: 0 topiramate [Topamax] 25 mg Tablet 25 mg PO DAILY RF: 0 tramadol 50 mg Tablet 50 mg PO Q6H PRN (Reason: Pain) RF: 0 hydrocodone-acetaminophen 5-325 mg tablet 1 tab PO Q8H PRN (Reason: pain) Qty: 21 RF: 0 Discharge Orders: Discharge ED (Routine); Ordered 11/04/20 Ordered By: Alma Rosa Gonzales Referrals: Shreya Marcos MD [Primary Care Provider] - Patient Instructions: Foot Sprain (ED), RICE Therapy (ED) Coding Level of Care Code ED Ring Stamper for Gerardo Ellis
--- NOTE | 2020-11-04 14:55 | XRR_ITS ---
PROCEDURE INFORMATION: Exam: XR Left Foot Exam date and time: 11/04/2020 2:55 PM Age: 70 years old Clinical indication: Pain and injury or trauma; Fall; Sprain or strain; Foot; Left; Additional info: Fall/pain TECHNIQUE: Imaging protocol: XR Left foot. Views: 3 or more views. COMPARISON: CR XR ankle LT min 3V* [id number] 11/04/2020 2:19 PM FINDINGS: Bones/joints: Normal. Soft tissues: Soft tissue swelling along the dorsal foot. XR/XR foot LT min 3V* [id number] IMPRESSION: No acute osseous abnormalities of the left foot.
== END 2020-11-04 15:49 | disposition home or self-care (01) ==
PROVIDERS: Emergency Provider Physician Assistant; PCP Internal Medicine
DX: S93.602A Unspecified sprain of left foot, initial encounter (principal); X50.1XXA Overexertion from prolonged static or awkward postures, initial encounter
CPT/HCPCS: 73610; 73630; 99282

== ENCOUNTER 2020-11-19 12:53 | Outpatient (CLI) | payer MEDICARE, BC, SELFPAY ==
--- NOTE | 2020-11-19 12:59 | XR_ITS ---
WS: [id number] KUB, AP view, 11/19/2020 Clinical Data: URETERAL CALCULUS Comparison: KUB, 10/28/2020. Findings: No abnormal intraabdominal masses or calcifications are seen. There is no dilatated small bowel or ev idence of obstruction. The right ureteral stent is in good position. There are phleboliths in the true pelvis. There is a la rge amount of fecal material throughout the colon. There are dilated central small bowel loops. XR/XR KUB [id number] Impression: 1. Right ureteral stent. 2. Moderate generalized ileus.
== END 2020-11-19 12:54 | disposition home or self-care (01) ==
PROVIDERS: PCP Internal Medicine; Visit Provider Urology
DX: N20.1 Calculus of ureter (principal); Z96.0 Presence of urogenital implants; K56.7 Ileus, unspecified
CPT/HCPCS: 74018; 81003

== ENCOUNTER → 2020-12-02 13:24 | Outpatient (BNVA) | payer MEDICARE, BC, SELFPAY | PROVIDERS: PCP Internal Medicine; Visit Provider Urology | DX: N20.1 Calculus of ureter (principal); Z20.822 Contact with and (suspected) exposure to COVID-19 | CPT/HCPCS: 87635 ==

== ENCOUNTER 2020-12-09 10:27 | Day surgery (SDC) | payer MEDICARE, BC, SELFPAY ==
[2020-12-06 13:10] VITALS: BMI 36.0
[2020-12-09] VITALS (14 sets, daily range): BP systolic 112–174; BP diastolic 56–110; PULSE 62–78; RESP 14–24; TEMP 36.2–36.8; O2SAT 93–100
--- NOTE | 2020-12-09 | SCC_ITS ---
Procedure Done: 1. Cystoscopy and removal of right ureteral stent 2. Right ureteroscopy, removal of/manipulation of ureteral debris 3. Right retrograde ureteropyelogram 47.9 seconds of fluoroscopic guidance, for a cumulative dose of 15.38 mGy, was provided to Dr. Mar by the radiology department. C-arm images of the abdomen were saved for the patient's permanent record. [facility]
--- NOTE | 2020-12-09 10:46 | SC_ITS ---
WS: [id number] Exam: C-arm FL for Urology Date/Time of Exam: 12/09/2020 10:46 AM Reason For Exam: Right ureteroscopy Limited intraoperative C-arm images of the right pelvis and abdomen are submitted for evaluation. The images depict a right-sided ureteroscope in the right ureter with a guidewire. There is radiograp hic contrast in the right renal collecting system. There are several small filling defects in the rig ht renal pelvis and proximal right ureter that may be air bubbles or retained small stone fragments. No other significant finding on this limited series
[2020-12-09] MEDS: sodium chloride 0.9% 1,000 ML 30 ML IV (11:26)
[2020-12-09 11:32] LABS: Glucose Point of Care 125 mg/dL (70-110)
--- NOTE | 2020-12-09 12:06 | W.PM.OPSUD ---
Surgery/Procedure H&P Update DATE OF PROCEDURE: December 09, 2020 DATE H&P PERFORMED: 11/19/20 H&P UPDATE INFORMATION: I have reviewed H&P completed within last 30 days, I have examined patient prior to procedure, No changes to prior documentation and H&P is in [facility] EMR on date indicated PREOP DIAGNOSIS: Right ureteral impacted stone with right ureteral injury (inflammation) PLANNED PROCEDURE: Operation Date: 12/09/20 12:15 Proposed Procedures p Cystoscopy 40727 N20.9(Not Applicable) - David Mar MD s Ureteral Stent Removal(Not Applicable) - David Mar MD s Ureteroscopy(Right) - David Mar MD
--- NOTE | 2020-12-09 12:12 | PM.OP ---
Operative Report Date of procedure: December 09, 2020 Pre-op Diagnosis: Right ureteral impacted stone with right ureteral injury (inflammation) Post-op Diagnosis: Same Procedure Done: 1. Cystoscopy and removal of right ureteral stent 2. Right ureteroscopy, removal of/manipulation of ureteral debris 3. Right retrograde ureteropyelogram Implants: None Specimens removed/disposition: Proximal ureteral debris, matrix proteinaceous type material Surgeon: Zaid Anesthesia: General Estimated blood loss: Minimal Urine output: not measured Complications: None Condition: stable Disposition: PACU Brief History: Rubia is a very pleasant 70-year-old white female who was coincidentally discovered to have a large RIGHT mid ureteral stone with high-grade obstruction identified on CT scan done for LEFT flank pain. The left side showed no evidence of obstructing stone. It had obviously been in that position for a while. She underwent initially attempt at ureteroscopic stone extraction/fulguration but the stone was found to have become deeply embedded and it was impossible to get a scope up safely to the stone. She was stented though and then underwent ESWL to the stone followed by ureteroscopy. The stone had been fragmented with ESWL but it was embedded in the ureteral wall as a full impaction and ureteroscopy allowed for breaking through the mucosal membrane keeping the stones fixed in position. The fragments were removed with combination of lasering and basket. The area where the stones have been impacted was severely inflamed and at risk for stricturing or obstructing and therefore she was restented and the stent has been in place now for about 6 weeks to allow for healing. She is back now for a relook to confirm adequate healing before permanent stent removal. Procedure: After routine preoperative evaluation examination and obtaining of informed consent she was taken to the operating suite on 12/09/2020 where general anesthesia was administered without difficulty after appropriate timeout was performed, SCDs confirmed to be functioning, preoperative antibiotics administered, beta-aminata protocol confirmed. Prepped and draped in usual sterile fashion in dorsolithotomy position paying careful attention to avoiding pressure points. 21 Mohawk cystoscope with 30 degree lens was introduced into the urethra meatus and advanced into the bladder to videoscopy. The stent was in the expected position secured distally with grasping forceps and withdrawn through the urethral meatus. A flexible tip guidewire was then advanced up the ureter through the stent into appropriate position as confirmed via fluoroscopy. Stent was then removed over the guidewire. The wire was secured to the drapes as a safety wire. An offset semirigid ureteroscope was advanced next to the wire up the right ureter to the area in question. It was carefully inspected. The area of impaction was completely well-healed. There was no residual inflammation stones etc. Retrograde ureteropyelogram: Contrast was then injected through the scope and the ureter proximal to previous impaction site was atypical in its appearance with some areas of narrowing with dilation above and below. These areas were carefully inspected with the ureteroscope and appeared to be a post chronic dilation configuration with no true stricture disease. The scope was easily passed into the renal pelvis. There is a large amount of proteinaceous globular material in the renal pelvis and proximal ureter and this was removed with combination of X?catch basket and grasping forceps. Some of this was sent for pathologic evaluation. Did not appear to be malignant etc. On final inspection of the ureter there was no residual stones significant inflammatory changes or residual globular material. The scope was removed slowly for examination of the ureter 1 final time. She tolerated procedure well without complications and was awakened in the operating room and returned to the recovery room in stable condition with anticipation of discharge from outpatient surgery today. PLANS: 1. Continue Macrobid for least 1 more week 2. Follow-up in 3 months with KUB, PVR
--- NOTE | 2020-12-09 12:39 | ANES.PREANE2 ---
Pre-Anesthetic Assessment Pre-Anesthetic Assessment: Height/Weight: Height 1.7 m Weight 104.326 kg Temp Pulse Resp BP Pulse Ox 98.2 F 78 18 141/85 96 12/09/20 10:47 12/09/20 10:47 12/09/20 10:47 12/09/20 10:47 12/09/20 10:47 Preop Diagnosis: Right ureteral impacted stone with right ureteral injury (inflammation) Proposed Procedure: Operation Date: 12/09/20 12:15 Proposed Procedures p Cystoscopy 08893 N20.9(Not Applicable) - David Mar MD s Ureteral Stent Removal(Not Applicable) - David Mar MD s Ureteroscopy(Right) - David Mar MD Was Beta Kylie taken within 24 hours: Yes Was Clonidine taken within 24 hours: N/A Last intake: Intake Last Liquid Date 12/09/20 Last Liquid Time 06:00 Last Solid Date 12/08/20 Last Solid Time 23:00 Social: Social History: No alcohol and No tobacco Exam: Pre-Anes Outpt Exam: alert, oriented x 3, clear to auscultation bilaterally and regular rate & rhythm Airway: Submandibular: WNL Cervical ROM: WNL MP: 2 Dentition: False CV/HEM: CV/HEM: Anemia Metabolic: Metabolic: Hyperlipidemia, Morbid obesity and Thyroid Neuropsych: Neuropsych: Anxiety and Depression Comments: Chronic pain/fibromyalgia Anesthetic Plan: ASA status: 3 Anesthesia: General Risk of > 500 ml blood loss (7ml/kg in children): No Meds/Allergies Current Medications: Current Medications Generic Name Dose Route Start Last Admin Trade Name Freq PRN Reason Stop Dose Admin Sodium Chloride 1,000 mls @ 30 ml s/hr 12/09/20 11:00 12/09/20 11:26 Sodium Chloride 0.9% IV 12/10/20 10:59 30 mls/hr .Q24H NILA Administration PFSH Anesthesia PFSH: Medical History Fibromyalgia Mixed stress and urge urinary incontinence Recurrent UTI Urolithiasis Family History (Updated 11/19/20 @ 14:02 by Traci Bello LPN) Father , IN HIS 90'S Cancer Heart disease Brother Diabetes Mother , AT AGE 100 No problems noted. Social History (Updated 11/19/20 @ 14:02 by Traci Bello LPN) Smoking and tobacco status: never smoked Alcohol intake: current Alcohol intake frequency: holidays/special occasions only Marital status: Number of children: 2 service: No Current occupational status: retired History of recent travel: No Data Anesthesia Other Labs: Laboratory Results - last 48 hr 12/09/20 11:21 POC Glucose 125 H Cardiac Studies: No Data to Display
[2020-12-09] MEDS: fentaNYL 50 mcg/mL INJ 2mL IVP (12:40)
[2020-12-09] MEDS: levofloxacin-dextrose 5 % 500 MG/100 ML PREMIX 100 MG IV (13:20)
[2020-12-09] MEDS: iohexol 300 mg/mL 50 mL Btl (OR ONLY) XX (13:45)
[2020-12-09] MEDS: HYDROmorphone 1 mg/mL INJ 1 mL 0.5 MG IVP (15:34)
[2020-12-09] MEDS: TRAMadol 50 mg Tablet PO (15:38)
--- NOTE | 2020-12-09 15:38 | ANE.PACU2 ---
Inpatient post-anesthesia follow up: Airway intact: Yes Vital signs: Temperature 97.7 F Pulse Rate 65 Respiratory Rate 18 Blood Pressure 121/56 Pulse Oximetry 93 Oxygen Delivery Me thod Room Air Oxygen Flow Rate 8 Fraction of Inspir ed Oxygen Hydration adequate: Yes Nausea and vomiting: No Pain level: 2 Mental status: Baseline
== END 2020-12-09 16:08 | disposition home or self-care (01) ==
PROVIDERS: PCP Internal Medicine; Visit Provider Urology
PROC: 0TJB8ZZ Inspection of Bladder, Via Natural or Artificial Opening Endoscopic (ICD-10-PCS; CPT 52000; principal; 2020-12-09 12:15)
PROC: (CPT 52310; 2020-12-09 12:15)
PROC: 0TJ98ZZ Inspection of Ureter, Via Natural or Artificial Opening Endoscopic (ICD-10-PCS; CPT 52351; 2020-12-09 12:15)
DX: N20.1 Calculus of ureter (principal); E78.5 Hyperlipidemia, unspecified; E66.01 Morbid (severe) obesity due to excess calories; Z68.36 Body mass index [BMI] 36.0-36.9, adult; F41.9 Anxiety disorder, unspecified; F32.9 Major depressive disorder, single episode, unspecified; M79.7 Fibromyalgia
CPT/HCPCS: 52352; 36416; 76000; 82962; 88305; J1100; J1170; J1956; J2405; J2704; J3010; J7030

== ENCOUNTER 2021-01-25 09:16 | Emergency (ER) | payer MEDICARE, BC, SELFPAY ==
[2021-01-25 09:27] VITALS: BP 178/100; PULSE 90; RESP 18; TEMP 36.2; O2SAT 94; BMI 34.4
--- NOTE | 2021-01-25 09:46 | USR_ITS ---
PROCEDURE INFORMATION: Exam: US Abdomen, Limited; Right Upper Quadrant Exam date and time: 01/25/2021 9:46 AM Age: 70 years old Clinical indication: Abdominal pain; Additional info: Abd pain TECHNIQUE: Imaging protocol: US abdomen. Real time ultrasound with image documentation. Limited exam focused on the right upper quadrant. COMPARISON: US Abdomen* [id number] 07/16/2017 9:33 AM FINDINGS: Liver: Echogenic fatty liver. No focal lesions identified. Gallbladder: The gallbladder is partially filled. No stones. No wall thickening or pericholecystic fluid. Common bile duct: The common bile duct is normal in caliber measuring less than 3 mm near the liver hilum. Pancreas: The pancreas is poorly visualized. Right kidney: The right kidney measures 11.3 x 4.0 x 5.0 cm. Overall normal cortical thickness and echogenicity. No hydronephrosis. No visualized stones or lesions. Aorta: Visualized aorta normal in caliber. Inferior vena cava: Visualized IVC patent. US/US gall bladder [id number] IMPRESSION: 1. No acute findings. 2. Mild hepatic steatosis. Radiation Dose CTDIVOL = (mGy): DLP = (mGy-cm)
--- NOTE | 2021-01-25 09:50 | ECG_ITS ---
[facility] Test Date: 2021-01-25 Pat Name: Rubia Mora Department: Room: Gender: Female [employer]: : 1950 Requested By: Jason Lyles Order Number: [id number] Henry MD: Omer Gu M.D. Measurements Intervals [place] Rate: 81 P: 40 [place]: 178 QRS: -28 QRSD: 102 T: 29 QT: 378 QTc: 439 Interpretive Statements SINUS RHYTHM LOW QRS VOLTAGE IN PRECORDIAL LEADS [QRS DEFLECTION < 1.0 mV IN CHEST LEADS] MODERATE VOLTAGE CRITERIA FOR LVH, CONSIDER NORMAL VARIANT [MEETS CRITERIA IN ONE OF: R(aVL), S(V1), R(V5), R(V5/V6)+S(V1)] POSSIBLE ANTERIOR MYOCARDIAL INFARCTION , PROBABLY OLD [30 ms Q WAVE IN V3/V4, OR R < 0.2 mV IN V4] Compared to ECG 02/17/2020 19:17:08 No significant changes Electronically Signed On 01-25-2021 21:28:32 CDT by Omer Gu M.D. [id number]
--- NOTE | 2021-01-25 09:52 | ED_ITS ---
HPI - General Adult General: Chief complaint: General Medical Stated complaint: R ABD PAIN, RADIATING UP THROUGH R SHOULDER Time Seen by Provider: 01/25/21 09:34 History of Present Illness: HPI narrative: 70-year-old female presents emergency room right upper quadrant abdominal pain times last week. Pain radiates into the right shoulder. She has had acholic diarrhea stools associated with it as well. No dysuria urgency or frequency no hematochezia melena hematemesis or coffee-ground emesis. No prior abdominal surgeries. Is not had any associated chest pain or shortness of breath. Onset (ago): week(s) (1) Location: abdomen Radiation: other (Right shoulder) Severity: moderate Quality: aching Pain Consistency: constant Relieving factors: none Exacerbating factors: none Associated symptoms: Reports decreased appetite and nausea; Deny chest pain, confusion, cough, diaphoresis, dyspnea, fevers/chills, headache(s), malaise, rash, palpitations, seizures, short of breath, syncope, vomiting or weakness Treatments prior to arrival: none Review of Systems Const: Denies: malaise or diaphoresis ENMT: Denies: throat pain, ear or mastoid pain, nasal discharge or nasal con gestion Card: Denies: chest pain, palpitations or syncope Resp: Denies: dyspnea GI: Reports: nausea; Denies: vomiting : Denies: flank pain, difficulty voiding, dysuria, urinary frequency or urinary urgency Skin/Breast: Denies: rash Neuro: Denies: headache(s) or confusion PFSH ED PFSH: Medical History Fibromyalgia Mixed stress and urge urinary incontinence Recurrent UTI Urolithiasis Family History Father , IN HIS 90'S Cancer Heart disease Brother Diabetes Mother , AT AGE 100 No problems noted. Social History Smoking and tobacco status: never smoked Alcohol intake: current Alcohol intake frequency: holidays/special occasions only Marital status: Number of children: 2 service: No Current occupational status: retired History of recent travel: No Physical Exam Const: COMMON NORMALS: no acute distress GENERAL APPEARANCE: cooperative and comfortable ORIENTATION/CONSCIOUSNESS: Yes awake, Yes oriented to person, Yes oriented to place and Yes oriented to time HENMT: COMMON NORMALS: normocephalic, atraumatic and hearing grossly normal bilaterally HEAD & SCALP: normocephalic and atraumatic Neck/C-Spine: COMMON NORMALS: full ROM, no lymphadenopathy and supple Lymph: LYMPHATIC: no lymphadenopathy noted and no lymphedema noted Resp: COMMON NORMALS: normal respiratory effort, No retractions, No use of accessory muscles and clear to auscultation bilaterally AUSCULTATION: clear to auscultation bilaterally Cardio: COMMON NORMALS: regular rate, regular rhythm and No murmurs present (Cardio) RATE: regular rate RHYTHM: regular rhythm GI: COMMON NORMALS: Soft to palpation and No hepatosplenomegaly present AUSCULTATION: Yes normoactive bowel sounds PALPATION: Yes Soft to palpation, Yes Tenderness to palpation present (GI) (Positive Ariza sign on exam) Details: RUQ, No Guarding due to palpation present (GI) and Yes No hepatosplenomegaly present Extremity: COMMON NORMALS: normal to inspection, capillary refill normal, no clubbing, cyanosis or edema, no calf tenderness and no pedal edema Neuro: SENSORIUM/ORIENTATION: Yes oriented to person, Yes oriented to place and Yes oriented to time Skin: COMMON NORMALS: no rashes or lesions noted GENERAL SKIN EXAM: no rashes or lesions noted Course Vital Signs: Vital signs: Vital Signs Temperature 97.1 F L 01/25/21 09:27 Pulse Rate 90 01/25/21 09:27 Respiratory Rate 18 01/25/21 11:26 Blood Pressure 178/100 01/25/21 09:27 Pulse Oximetry 96 01/25/21 11:26 MDM - General Adult MDM Narrative: Medical decision making narrative: Labs and imaging reviewed as on the chart. Suspect patient has biliary dyskinesia. Reviewed the findings with the patient discharged home clear liquid diet for 24 to 48 hours then simple carbohydrates and set her up for a HIDA scan and follow-up with surgery. Has recurrence of symptoms her pain is uncontrolled return to the emergency room. Lab Data: Labs: Lab Results 01/25/21 01/25/21 01/25/21 09:50 09:50 10: WBC 8.9 10^3/uL 10^3/ uL (4.0-10.0) RBC 4.38 10^6/uL 10^6 /uL (4.1-5.3) Hgb 13.7 g/dL g/dL (11.5-15.3) Hct 43.1 % % (37.0-47.0) MCV 98.4 fl fl (81-99) MCH 31.3 pg pg (28.0-34.0) MCHC 31.8 g/dL g/dL (30.0-36.0) RDW 12.5 % % (12.1-15.1) Plt Count 244 10^3/cmm 10^3 /cmm (130-400) MPV 10.7 fL H fL (7.4-10.4) Neut % (Auto) 61.0 % % Lymph % (Auto) 29.9 % % [place] % (Auto) 6.2 % % Eos % (Auto) 1.9 % % Baso % (Auto) 0.6 % % Neut # (Auto) 5.44 10^3/uL 10^3 /uL (1.8-7.7) Lymph # (Auto) 2.7 10^3/uL 10^3/ uL (0.8-4.8) [place] # (Auto) 0.6 10^3/uL 10^3/ uL (0.2-0.9) Eos # (Auto) 0.2 10^3/uL 10^3/ uL (0.0-0.8) Baso # (Auto) 0.1 10^3/uL 10^3/ uL (0.0-0.1) Nucleated RBC % (a uto) 0 % % Nucleated RBCs # 0.0 /100WBC /100W BC Sodium Cancelled 136 mmol/L mmol/L (136-145) Potassium Cancelled 4.3 mmol/L mmol/L (3.5-5.1) Chloride Cancelled 104 mmol/L mmol/L (98-107) Carbon Dioxide Cancelled 22 mmol/L mmol/L (22-29) Anion Gap Cancelled 14.3 (5-19) BUN Cancelled 8 mg/dL mg/dL (8-23) Creatinine Cancelled 0.9 mg/dL mg/dL (0.5-0.9) GFR Calculation Cancelled 62.1 mL/min L mL/ min (90-130) Glucose Cancelled 146 mg/dL H mg/dL (65-115) Calculated Osmolal ity Cancelled 283 mOsm/kg L mOs m/kg (285-295) Calcium Cancelled 9.0 mg/dL mg/dL (8.5-10.5) Total Bilirubin Cancelled 0.2 mg/dL mg/dL (0.15-1.2) AST Cancelled 14 U/L U/L (0-32) ALT Cancelled 9 U/L U/L (0-33) Alkaline Phosphata se Cancelled 98 IU/L IU/L (35-105) Total Protein Cancelled 7.0 g/dL g/dL (6.6-8.7) Albumin Cancelled 3.9 g/dL g/dL (3.5-5.2) Globulin Cancelled 3.1 g/dL g/dL (1.3-4.6) Lipase Cancelled 32 U/L U/L (13-60) Urine Color Urine Appearance Urine pH Ur Specific Gravit y Urine Protein Urine Glucose (UA) Urine Ketones Urine Blood Urine Nitrate Urine Bilirubin Urine Urobilinogen Ur Leukocyte Cally ase 01/25/21 12:15 WBC RBC Hgb Hct MCV MCH MCHC RDW Plt Count MPV Neut % (Auto) Lymph % (Auto) [place] % (Auto) Eos % (Auto) Baso % (Auto) Neut # (Auto) Lymph # (Auto) [place] # (Auto) Eos # (Auto) Baso # (Auto) Nucleated RBC % (a uto) Nucleated RBCs # Sodium Potassium Chloride Carbon Dioxide Anion Gap BUN Creatinine GFR Calculation Glucose Calculated Osmolal ity Calcium Total Bilirubin AST ALT Alkaline Phosphata se Total Protein Albumin Globulin Lipase Urine Color Straw (Yellow) Urine Appearance Clear (CLEAR) Urine pH 6 (5-7) Ur Specific Gravit y 1.005 (1.005-1.030) Urine Protein Neg (Negative) Urine Glucose (UA) Norm (Normal) Urine Ketones Negative (Negative) Urine Blood Neg (Negative) Urine Nitrate Negative (Negative) Urine Bilirubin Neg (Negative) Urine Urobilinogen Norm mg/dL mg/dL (Negative) Ur Leukocyte Cally ase Negative (Negative) Discharge Plan Discharge Patient Disposition: Home Clinical Impression: Biliary dyskinesia Condition: Stable Prescriptions: New hydrocodone-acetaminophen 5-325 mg tablet 1 tab PO Q6H PRN (Reason: pain) Qty: 20 RF: 0 Zofran 4 mg tablet 4 mg PO Q6H PRN (Reason: nausea and vomiting) Qty: 15 RF: 0 No Action famotidine 40 mg tablet 40 mg PO DAILY RF: 0 Januvia 50 mg tablet 50 mg PO DAILY RF: 0 montelukast 10 mg tablet 10 mg PO DAILY RF: 0 nitrofurantoin monohyd/m-cryst 100 mg capsule See Rx Instructions .ROUTE .COMPLEX Qty: 60 RF: 2 buspirone 5 mg Tablet 5 mg PO BID RF: 0 cetirizine 10 mg Tablet 10 mg PO DAILY RF: 0 alprazolam 1 mg Tablet 1 mg PO TID PRN (Reason: Anxiety) RF: 0 sumatriptan succinate [Imitrex] 100 mg Tablet 100 mg PO Q2H PRN (Reason: Headache) RF: 0 simvastatin 10 mg Tablet 10 mg PO DAILY RF: 0 atenolol 25 mg Tablet 25 mg PO DAILY RF: 0 amitriptyline 50 mg tablet 25 mg PO DAILY RF: 0 levothyroxine 75 mcg Tablet 75 mcg PO DAILY RF: 0 bisacodyl 5 mg Tablet 5 mg PO DAILY RF: 0 duloxetine [Cymbalta] 60 mg Capsule,Delayed Release(Dr/Ec) 60 mg PO BID RF: 0 aripiprazole [Abilify] 2 mg Tablet 2 mg PO DAILY RF: 0 diclofenac sodium 1 % Gel 2 g TOPICAL QID RF: 0 cholecalciferol (vitamin D3) [Vitamin D3] 125 mcg (5,000 unit) Tablet 125 mcg PO UNK RF: 0 tramadol 50 mg Tablet 50 mg PO Q6H PRN (Reason: Pain) RF: 0 Discharge Orders: Discharge ED (Routine); Ordered 01/25/21 Ordered By: Jason Cisneros Referrals: Shreya Marcos MD [Primary Care Provider] - Discharge Diet: As Directed Discharge Activity: Increase activity as tolerated Patient Instructions: Opioid Safety Activity Restrictions/Additional Instructions: Case management will call with arrangements for you to have a biliary HIDA scan. And follow-up with surgery. 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
[2021-01-25 10:01] LABS: Basophils # 0.1 10^3/uL (0.0-0.1); Basophils % 0.6 %; Eosinophils # 0.2 10^3/uL (0.0-0.8); Eosinophils % 1.9 %; Hematocrit 43.1 % (37.0-47.0); Hemoglobin 13.7 g/dL (11.5-15.3); Lymphocytes # 2.7 10^3/uL (0.8-4.8); Lymphocytes % 29.9 %; Mean Corpuscular HGB Conc 31.8 g/dL (30.0-36.0); Mean Corpuscular Hemoglobin 31.3 pg (28.0-34.0); Mean Corpuscular Volume 98.4 fl (81-99); Mean Platelet Volume 10.7 fL (7.4-10.4); Monocytes # 0.6 10^3/uL (0.2-0.9); Monocytes % 6.2 %; Neutrophils # 5.44 10^3/uL (1.8-7.7); Nucleated Red Blood Cells % 0 %; Platelet Count 244 10^3/cmm (130-400); Red Blood Count 4.38 10^6/uL (4.1-5.3); Red Cell Distribution Width 12.5 % (12.1-15.1); White Blood Count 8.9 10^3/uL (4.0-10.0)
[2021-01-25 10:51] LABS: Alanine Aminotransferase 9 U/L (0-33); Albumin Level 3.9 g/dL (3.5-5.2); Alkaline Phosphatase 98 IU/L (35-105); Anion Gap 14.3 (5-19); Aspartate Amino Transferase 14 U/L (0-32); Blood Urea Nitrogen 8 mg/dL (8-23); Carbon Dioxide 22 mmol/L (22-29); Chloride 104 mmol/L (98-107); Globulin 3.1 g/dL (1.3-4.6); Glomerular Filtration Rate 62.1 mL/min (90-130); Glucose 146 mg/dL (65-115); Lipase 32 U/L (13-60); Osmolality Calculated 283 mOsm/kg (285-295); Potassium 4.3 mmol/L (3.5-5.1); Sodium 136 mmol/L (136-145); Total Bilirubin 0.2 mg/dL (0.15-1.2)
[2021-01-25 11:26] VITALS: RESP 18; O2SAT 96
[2021-01-25] MEDS: morphine 4 mg/mL SDV 1 mL IVP (11:26)
[2021-01-25] MEDS: ondansetron 2 mg/ML SDV 2 mL 4 MG IVP (11:26)
[2021-01-25 12:38] LABS: Add Urine Microscopic? NO; Charge for UA Resulting for Rev
[2021-01-25 12:44] LABS: Bilirubin Urine Neg (Negative); Blood Urine Neg (Negative); Glucose Urine UA Norm (Normal); Ketones Urine Negative (Negative); Leukocyte Esterase Urine Negative (Negative); Nitrate Urine Negative (Negative); Protein Urine Neg (Negative); Specific Gravity, Urine 1.005 (1.005-1.030); Urine Appearance Clear (CLEAR); Urine Color Straw (Yellow); Urobilinogen Urine Norm (Negative); pH Urine 6 (5-7)
--- NOTE | 2021-01-27 10:34 | DCPLANNER ---
manager acute had message to schedule an outpatient HIDA scan for patient. manager acute faxed signed order to centralized scheduling, who will call patient with appointment information. manager acute also had message to schedule a follow up appointment for patient with general surgery. manager acute emailed patients information to Emmett at [facility] General Surgery. Patients information will be printed and reviewed. Clinic will call patient with appointment information.
--- NOTE | 2021-02-07 13:10 | DCPLANNER ---
Addendum entered by Saritha Gonzales 05/10/21 11:42: Patient had a HIDA scan scheduled - this appointment was cancelled. Original Note: Patient had a follow up appointment scheduled for 02.04.[address] Ward at general surgery - patient did attend appointment. Patient has a HIDA scan scheduled for Sunday, February 25 at 10:00, centralized scheduling will call patient with appointment information.
== END 2021-01-25 13:22 | disposition home or self-care (01) ==
PROVIDERS: Emergency Provider Family Medicine; PCP Internal Medicine
DX: K82.8 Other specified diseases of gallbladder (principal)
CPT/HCPCS: 76705; 80053; 81003; 83690; 85025; 93005; 96374; 96375; 99284; J2270; J2405

== ENCOUNTER 2021-02-03 03:57 | Emergency (ER) | payer MEDICARE, BC, SELFPAY ==
[2021-02-03 04:04] VITALS: BP 156/86; PULSE 88; RESP 16; TEMP 37; O2SAT 96; BMI 34.4
--- NOTE | 2021-02-03 04:11 | ED_ITS ---
HPI - Abdominal Pain General: Chief Complaint: Abdominal Pain Stated Complaint: Upper Right Quad Pain Time Seen by Provider: 02/03/21 03:59 Source: patient Mode of arrival: ambulatory Limitations: no limitations History of Present Illness: HPI narrative: 70-year-old female who states she been having right upper quadrant bowel pain over the last 10 days. She was seen here last week and normal ultrasound is set up for a HIDA scan through Dr. Ward tomorrow. Patient states that she no longer has her hydrocodone she is ran out her pain is gotten much worse. States pain is sharp in nature and rates an 8 out of 10 is worse with any movement. No vomiting no fever. Associated Symptoms: Denies chills, dysuria and fever(s) Review of Systems Const: Denies: fever(s), chills, body aches or change in appetite Eyes: Denies: blurry vision or eye discomfort ENMT: Denies: throat pain or dental pain Card: Denies: chest pain Resp: Denies: dyspnea GI: Reports: abdominal pain : Denies: dysuria Musc: Denies: neck pain or back pain Skin/Breast: Denies: rash Neuro: Denies: headache(s) Psych: Denies: depression Pilo/Lymph: Denies: easy bruising All/Imm: Denies: urticaria PFSH ED PFSH: Medical History Fibromyalgia Mixed stress and urge urinary incontinence Recurrent UTI Urolithiasis Family History Father , IN HIS 90'S Cancer Heart disease Brother Diabetes Mother , AT AGE 100 No problems noted. Social History Smoking and tobacco status: never smoked Alcohol intake: current Alcohol intake frequency: holidays/special occasions only Marital status: Number of children: 2 service: No Current occupational status: retired History of recent travel: No Physical Exam Const: COMMON NORMALS: no acute distress, patient oriented x3 and healthy appearing HENMT: COMMON NORMALS: normocephalic and atraumatic HEAD & SCALP: normocephalic and atraumatic Eye: COMMON NORMALS: Equal, round and reactive pupils present and EOMs intact bilaterally PUPIL: Yes Equal, round and reactive pupils present Neck/C-Spine: COMMON NORMALS: full ROM and supple Chest: COMMONS NORMALS: normal inspection of the chest and normal palpation of entire chest wall Resp: COMMON NORMALS: normal respiratory effort, No retractions, No use of accessory muscles and clear to auscultation bilaterally AUSCULTATION: clear to auscultation bilaterally Cardio: COMMON NORMALS: regular rate, regular rhythm and No murmurs present (Cardio) RATE: regular rate RHYTHM: regular rhythm GI: COMMON NORMALS: Normal to inspection, nondistended, normoactive bowel sounds present, Soft to palpation, non-tender and no masses PALPATION: Yes Soft to palpation and Yes Tenderness to palpation present (GI) Details: RUQ Extremity: COMMON NORMALS: normal to inspection and full ROM Neuro: COMMON NORMALS: patient oriented x3, moves all extremities and no focal motor deficits Psych: COMMON NORMALS: mental status grossly normal, Normal thought process present and cooperative THOUGHT PROCESS: Normal thought process present Skin: COMMON NORMALS: no rashes or lesions noted and no wounds GENERAL SKIN EXAM: no rashes or lesions noted Course Vital Signs: Vital signs: Vital Signs Temperature 98.6 F 02/03/21 04:04 Pulse Rate 74 02/03/21 06:05 Respiratory Rate 18 02/03/21 06:05 Blood Pressure 171/74 02/03/21 06:05 Pulse Oximetry 97 02/03/21 06:05 MDM - Abdominal Pain MDM Narrative: Medical decision making narrative: Patient presents with abdominal pain. CT here shows epiploic appendagitis could be causing her pain. She has no signs of acute surgical cause. She is to follow-up tomorrow as scheduled with surgery for a HIDA scan. She is return if worsening. She understands agrees to plan. Lab Data: Labs: Lab Results 02/03/21 02/03/21 02/03/21 04:20 04:35 04:35 WBC 9.0 10^3/uL 10^3/ uL (4.0-10.0) RBC 4.16 10^6/uL 10^6 /uL (4.1-5.3) Hgb 13.1 g/dL g/dL (11.5-15.3) Hct 42.7 % % (37.0-47.0) MCV 102.6 fl H fl (81-99) MCH 31.5 pg pg (28.0-34.0) MCHC 30.7 g/dL g/dL (30.0-36.0) RDW 12.4 % % (12.1-15.1) Plt Count 222 10^3/cmm 10^3 /cmm (130-400) MPV 10.0 fL fL (7.4-10.4) Neut % (Auto) 56.2 % % Lymph % (Auto) 33.4 % % [place] % (Auto) 6.9 % % Eos % (Auto) 2.3 % % Baso % (Auto) 0.4 % % Neut # (Auto) 5.03 10^3/uL 10^3 /uL (1.8-7.7) Lymph # (Auto) 3.0 10^3/uL 10^3/ uL (0.8-4.8) [place] # (Auto) 0.6 10^3/uL 10^3/ uL (0.2-0.9) Eos # (Auto) 0.2 10^3/uL 10^3/ uL (0.0-0.8) Baso # (Auto) 0.0 10^3/uL 10^3/ uL (0.0-0.1) Nucleated RBC % (a uto) 0 % % Nucleated RBCs # 0.0 /100WBC /100W BC Sodium 137 mmol/L mmol/L (136-145) Potassium 3.9 mmol/L mmol/L (3.5-5.1) Chloride 102 mmol/L mmol/L (98-107) Carbon Dioxide 26 mmol/L mmol/L (22-29) Anion Gap 12.9 (5-19) BUN 10 mg/dL mg/dL (8-23) Creatinine 1.1 mg/dL H mg/dL (0.5-0.9) GFR Calculation 49.2 mL/min L mL/ min (90-130) Glucose 166 mg/dL H mg/dL (65-115) Calculated Osmolal ity 287 mOsm/kg mOsm/ kg (285-295) Calcium 9.8 mg/dL mg/dL (8.5-10.5) Total Bilirubin 0.2 mg/dL mg/dL (0.15-1.2) AST 14 U/L U/L (0-32) ALT 11 U/L U/L (0-33) Alkaline Phosphata se 96 IU/L IU/L (35-105) Total Protein 7.2 g/dL g/dL (6.6-8.7) Albumin 3.8 g/dL g/dL (3.5-5.2) Globulin 3.4 g/dL g/dL (1.3-4.6) Lipase 38 U/L U/L (13-60) Urine Color Yellow (Yellow) Urine Appearance Clear (CLEAR) Urine pH 5 (5-7) Ur Specific Gravit y 1.020 (1.005-1.030) Urine Protein Neg (Negative) Urine Glucose (UA) Norm (Normal) Urine Ketones Negative (Negative) Urine Blood Neg (Negative) Urine Nitrate Negative (Negative) Urine Bilirubin Neg (Negative) Urine Urobilinogen Norm mg/dL mg/dL (Negative) Ur Leukocyte Cally ase Negative (Negative) Imaging Data ^: CT Abd/Pel: Attestation: I personally reviewed and interpreted this imaging study as follows: Radiologist's impression: [address] [facility] [address] CT Scan Report Signed Patient: Rubia Mora Unit #: [id number] : [id number] Age/Sex: 70 / F ADM Date: 02/03/21 Loc: ER Room/Bed: Attending Dr: Ordering Provider/Ordering MD: Bruce Galeas MD Date of Service: 02/03/21 Procedure(s): CT abdomen pelvis w con* [id number] Accession Number(s): [id number] Report Number: [id number] PROCEDURE INFORMATION: Exam: CT Abdomen And Pelvis With Contrast Exam date and time: 02/03/2021 4:10 AM Age: 70 years old Clinical indication: Abdominal pain; Localized; Right; Prior surgery; Surgery date: 6+ months; Surgery type: Appy; Additional info: Abd pain TECHNIQUE: Imaging protocol: Computed tomography of the abdomen and pelvis with contrast. Radiation optimization: All CT scans at this facility use at least one of these dose optimization techniques: automated exposure control; mA and/or kV adjustment per patient size (includes targeted exams where dose is matched to clinical indication); or iterative reconstruction. Contrast material: OMNI 300; Contrast volume: 95 ml; Contrast route: INTRAVENOUS (IV); COMPARISON: CT Abdomen/Pelvis Renal [id number] 03/01/2018 4:05 AM RADIATION DOSE METRICS: Total DLP (mGy-cm): 1804.42 FINDINGS: Diaphragm: Small hiatal hernia. Liver: Fatty liver. Gallbladder and bile ducts: No calcified stones. No ductal dilation. Pancreas: No ductal dilation. Spleen: No splenomegaly. Adrenal glands: Normal. No mass. Kidneys and ureters: No hydronephrosis. Stomach and bowel: There is a focus of extraluminal inflammation with central fat density along the anterior aspect of the cecum in the right lower quadrant. This is consistent with acute epiploic appendagitis. No dilated bowel loops. No high-grade obstruction. Appendix: The appendix is not identified and per history may be surgically absent. There are no pericecal or right lower quadrant inflammatory changes. Intraperitoneal space: No free air. No significant fluid collection. Vasculature: There are multiple pelvic phleboliths. Lymph nodes: No enlarged lymph nodes. Urinary bladder: Unremarkable as visualized. Reproductive: Unremarkable as visualized. Bones/joints: Unremarkable. No acute fracture. Soft tissues: Unremarkable. CT/CT abdomen pelvis w con* [id number] IMPRESSION: There is a focus of extraluminal inflammation with central fat density along the anterior aspect of the cecum in the right lower quadrant. This is consistent with acute epiploic appendagitis. Radiation Dose CTDIVOL = (mGy): DLP = 1804.42 (mGy-cm) Dictated By: Gabriella Payne MD Signed By: Gabriella Payne MD Signed Date/Time: 02/03/21529 DD/ 9 Discharge Plan Discharge Patient Disposition: Home Clinical Impression: Abdominal pain Qualifiers: Abdominal location: right upper quadrant Qualified Code(s): R10.11 - Right upper quadrant pain Condition: Stable Prescriptions: New hydrocodone-acetaminophen 5-325 mg tablet 1 tab PO Q6H PRN (Reason: pain) Qty: 14 RF: 0 ondansetron 4 mg tablet,disintegrating 4 mg PO Q6H PRN (Reason: nausea and vomiting) Qty: 14 RF: 0 No Action famotidine 40 mg tablet 40 mg PO DAILY RF: 0 Januvia 50 mg tablet 50 mg PO DAILY RF: 0 montelukast 10 mg tablet 10 mg PO DAILY RF: 0 nitrofurantoin monohyd/m-cryst 100 mg capsule See Rx Instructions .ROUTE .COMPLEX Qty: 60 RF: 2 hydrocodone-acetaminophen 5-325 mg tablet 1 tab PO Q6H PRN (Reason: pain) Qty: 20 RF: 0 Zofran 4 mg tablet 4 mg PO Q6H PRN (Reason: nausea and vomiting) Qty: 15 RF: 0 buspirone 5 mg Tablet 5 mg PO BID RF: 0 cetirizine 10 mg Tablet 10 mg PO DAILY RF: 0 alprazolam 1 mg Tablet 1 mg PO TID PRN (Reason: Anxiety) RF: 0 sumatriptan succinate [Imitrex] 100 mg Tablet 100 mg PO Q2H PRN (Reason: Headache) RF: 0 simvastatin 10 mg Tablet 10 mg PO DAILY RF: 0 atenolol 25 mg Tablet 25 mg PO DAILY RF: 0 amitriptyline 50 mg tablet 25 mg PO DAILY RF: 0 levothyroxine 75 mcg Tablet 75 mcg PO DAILY RF: 0 bisacodyl 5 mg Tablet 5 mg PO DAILY RF: 0 duloxetine [Cymbalta] 60 mg Capsule,Delayed Release(Dr/Ec) 60 mg PO BID RF: 0 aripiprazole [Abilify] 2 mg Tablet 2 mg PO DAILY RF: 0 diclofenac sodium 1 % Gel 2 g TOPICAL QID RF: 0 cholecalciferol (vitamin D3) [Vitamin D3] 125 mcg (5,000 unit) Tablet 125 mcg PO UNK RF: 0 tramadol 50 mg Tablet 50 mg PO Q6H PRN (Reason: Pain) RF: 0 Discharge Orders: Discharge ED (Routine); Ordered 02/03/21 Ordered By: Bruce Galeas Referrals: Sherya Marcos MD [Primary Care Provider] - Discharge Diet: Advance as tolerated Discharge Activity: Resume usual activity Patient Instructions: Abdominal Pain (ED), Opioid Safety Coding Level of Care Code ED Carpenter'S Assistant for Chg Fwd Exam Comprehensive
[2021-02-03 04:39] VITALS: BP 162/72; PULSE 84; RESP 18; O2SAT 98
[2021-02-03 04:43] LABS: Basophils % 0.4 %; Eosinophils # 0.2 10^3/uL (0.0-0.8); Eosinophils % 2.3 %; Hematocrit 42.7 % (37.0-47.0); Hemoglobin 13.1 g/dL (11.5-15.3); Lymphocytes % 33.4 %; Mean Corpuscular HGB Conc 30.7 g/dL (30.0-36.0); Mean Corpuscular Hemoglobin 31.5 pg (28.0-34.0); Mean Corpuscular Volume 102.6 fl (81-99); Monocytes # 0.6 10^3/uL (0.2-0.9); Monocytes % 6.9 %; Neutrophils # 5.03 10^3/uL (1.8-7.7); Neutrophils % 56.2 %; Nucleated Red Blood Cells % 0 %; Platelet Count 222 10^3/cmm (130-400); Red Blood Count 4.16 10^6/uL (4.1-5.3); Red Cell Distribution Width 12.4 % (12.1-15.1)
[2021-02-03 04:54] VITALS: RESP 18
[2021-02-03] MEDS: morphine 4 mg/mL SDV 1 mL IVP ×2 (04:54→05:38)
[2021-02-03] MEDS: ondansetron 2 mg/ML SDV 2 mL 4 MG IVP (04:55)
[2021-02-03] MEDS: sodium chloride 0.9% 1,000 ML 999 ML IV (04:55)
[2021-02-03 05:02] LABS: Add Urine Microscopic? NO; Charge for UA Resulting for Rev
[2021-02-03] MEDS: iohexol 300 mg/mL 100 mL Btl IV (05:02)
[2021-02-03 05:04] LABS: Bilirubin Urine Neg (Negative); Blood Urine Neg (Negative); Glucose Urine UA Norm (Normal); Ketones Urine Negative (Negative); Leukocyte Esterase Urine Negative (Negative); Nitrate Urine Negative (Negative); Protein Urine Neg (Negative); Urine Appearance Clear (CLEAR); Urine Color Yellow (Yellow); Urobilinogen Urine Norm (Negative); pH Urine 5 (5-7)
[2021-02-03 05:09] LABS: Alanine Aminotransferase 11 U/L (0-33); Albumin Level 3.8 g/dL (3.5-5.2); Alkaline Phosphatase 96 IU/L (35-105); Anion Gap 12.9 (5-19); Aspartate Amino Transferase 14 U/L (0-32); Blood Urea Nitrogen 10 mg/dL (8-23); Calcium 9.8 mg/dL (8.5-10.5); Carbon Dioxide 26 mmol/L (22-29); Chloride 102 mmol/L (98-107); Globulin 3.4 g/dL (1.3-4.6); Glomerular Filtration Rate 49.2 mL/min (90-130); Glucose 166 mg/dL (65-115); Lipase 38 U/L (13-60); Osmolality Calculated 287 mOsm/kg (285-295); Potassium 3.9 mmol/L (3.5-5.1); Sodium 137 mmol/L (136-145); Total Bilirubin 0.2 mg/dL (0.15-1.2); Total Protein 7.2 g/dL (6.6-8.7)
[2021-02-03 05:38] VITALS: RESP 18
[2021-02-03 06:05] VITALS: BP 171/74; PULSE 74; RESP 18; O2SAT 97
== END 2021-02-03 06:08 | disposition home or self-care (01) ==
PROVIDERS: Emergency Provider Emergency Medicine; PCP Internal Medicine
DX: R10.11 Right upper quadrant pain (principal); Z87.440 Personal history of urinary (tract) infections; Z87.442 Personal history of urinary calculi
CPT/HCPCS: 74177; 80053; 81003; 83690; 85025; 96361; 96374; 96375; 96376; 99284; J2270; J2405; J7030; Q9967

== ENCOUNTER 2021-02-07 13:35 | Emergency (ER) | payer MEDICARE, BC, SELFPAY ==
[2021-02-07 13:41] VITALS: BP 150/85; PULSE 74; RESP 16; TEMP 36.9; O2SAT 96; BMI 34.4
[2021-02-07 13:48] VITALS: BP 164/93; PULSE 73; RESP 18
--- NOTE | 2021-02-07 14:05 | XR_ITS ---
WS: [id number] K[facility], AP view, 02/07/2021 Clinical Data: abd pain Comparison: KUB, 11/19/2020. Findings: The right ureteral catheter has been removed. There is fecal material throughout the colon. No dilated small bowel loops are seen. There is air in the small bowel and colon. XR/XR KUB portable [id number] Impression: Moderate generalized ileus.
--- NOTE | 2021-02-07 14:07 | W.ED.ABDPA2 ---
HPI - Abdominal Pain General: Chief Complaint: Abdominal Pain Stated Complaint: Gallbladder Time Seen by Provider: 02/07/21 13:57 Source: patient and family Mode of arrival: ambulatory Limitations: no limitations History of Present Illness: HPI narrative: Patient with complaints of right upper quadrant abdominal pain has been persistent for approximately 2 weeks. Patient reports that she has been seen emergency room couple times for this and tests have been inconclusive. Patient reports nausea with intermittent diarrhea and constipation. She denies any vomiting or fever. She states she has had a past medical history of type 2 diabetes [id number], hypertension, hypothyroidism, hypothyroid myalgia. Surgical history includes left knee replacement, appendectomy, bilateral tubal ligation. She denies any hysterectomy or bowel surgery. She denies any tobacco or alcohol use. She denies being on blood thinners or any present antibiotics. MD elicited complaint: abdominal pain Pertinent past history: constipation Onset (ago): week(s) (2) Pain Consistency: constant (Fluctuating) Location: RUQ Severity: moderate Quality: sharp Radiation: none Migration to: no migration Exacerbating factors: nothing Relieving factors: nothing Context: history of similar episodes Associated Symptoms: Reports constipation, diarrhea and nausea; Denies chills, dysuria, fever(s), hematochezia, hematemesis, melena and vomiting Related Data: Patient : No Review of Systems Const: Denies: fever(s), chills or fatigue Eyes: Denies: change in vision ENMT: Denies: throat pain Card: Denies: chest pain or palpitations Resp: Denies: dyspnea or wheezing GI: Reports: abdominal pain, nausea, diarrhea and constipation; Denies: vomiting, hematemesis, hematochezia or melena : Denies: flank pain or dysuria Musc: Denies: neck pain or back pain Skin/Breast: Denies: rash or pruritus Neuro: Denies: headache(s) or numbness in extremities Psych: Denies: anxiety Pilo/Lymph: Denies: enlarged lymph nodes PFSH ED PFSH: Medical History Fibromyalgia Hypothyroidism Lumbar degenerative disc disease Mixed stress and urge urinary incontinence Recurrent UTI Type 2 diabetes mellitus Urolithiasis Surgical History History of appendectomy History of knee surgery History of tubal ligation Status post colonoscopy Family History Father , IN HIS 90'S Cancer Heart disease Brother Diabetes Mother , AT AGE 100 No problems noted. Social History Smoking and tobacco status: never smoked Alcohol intake: current Alcohol intake frequency: holidays/special occasions only Marital status: Number of children: 2 service: No Current occupational status: retired History of recent travel: No Physical Exam Const: COMMON NORMALS: no acute distress, patient oriented x3, no limitations and well nourished GENERAL APPEARANCE: cooperative NUTRITIONAL APPEARANCE: obese HENMT: COMMON NORMALS: normocephalic and atraumatic HEAD & SCALP: normocephalic and atraumatic FACE & SINUS: normal facial exam Eye: COMMON NORMALS: EOMs intact bilaterally Neck/C-Spine: COMMON NORMALS: full ROM, no lymphadenopathy, supple and no meningeal signs GENERAL: Yes normal visual inspection Lymph: LYMPHATIC: no lymphadenopathy noted Chest: COMMONS NORMALS: normal inspection of the chest and normal palpation of entire chest wall CHEST: No Ecchymosis present and No rash Resp: COMMON NORMALS: normal respiratory effort, No retractions and clear to auscultation bilaterally EFFORT & INSPECTION: No respiratory distress AUSCULTATION: clear to auscultation bilaterally Cardio: COMMON NORMALS: regular rate, regular rhythm and Peripheral pulses 2+ throughout JUGULAR VENOUS DISTENTION: no JVD RATE: regular rate RHYTHM: regular rhythm PERIPHERAL PULSES: Peripheral pulses 2+ throughout GI: COMMON NORMALS: Normal to inspection, nondistended, normoactive bowel sounds present, Soft to palpation, No hepatosplenomegaly present, no masses and no bruits PALPATION: Yes Soft to palpation, Yes Tenderness to palpation present (GI) Details: RUQ (Mild) and Yes No hepatosplenomegaly present PERCUSSION: normal to percussion : COMMON NORMALS: Yes no CVA tenderness BLADDER/KIDNEY EXAM: Yes no CVA tenderness Back/Pelvis: COMMON NORMALS: no CVA tenderness Extremity: COMMON NORMALS: normal to inspection, full ROM and capillary refill normal Neuro: COMMON NORMALS: patient oriented x3, CN's II-XII intact bilaterally, no focal motor deficits and no sensory deficits noted MENINGEAL SIGNS: Yes no meningeal signs Psych: COMMON NORMALS: mental status grossly normal and Normal thought process present THOUGHT PROCESS: Normal thought process present Skin: COMMON NORMALS: no rashes or lesions noted and no wounds GENERAL SKIN EXAM: no rashes or lesions noted Course Vital Signs: Vital signs: Vital Signs Temperature 98.5 F 02/07/21 13:41 Pulse Rate 73 02/07/21 13:48 Respiratory Rate 18 02/07/21 13:48 Blood Pressure 164/93 02/07/21 13:48 Pulse Oximetry 96 02/07/21 13:41 MDM - Abdominal Pain MDM Narrative: Medical decision making narrative: See nursing assessment. Patient was found to have acute epiploic appendagitis by CT scan on February 03. Lab all appears normal. I do not believe she needs repeat CT scan or ultrasound at this point. I suspect that her appendagitis is the cause of pain. Diarrhea and constipation. No obstruction. She is taking hydrocodone for pain. Medical Records: Attestation: I reviewed the patient's medical records. Medical records narrative: Ordering Provider/Ordering MD: Jason Cisneros DO Date of Service: 01/25/21 Procedure(s): US gall bladder [id number] Accession Number(s): [id number] Report Number: [id number] PROCEDURE INFORMATION: Exam: US Abdomen, Limited; Right Upper Quadrant Exam date and time: 01/25/2021 9:46 AM Age: 70 years old Clinical indication: Abdominal pain; Additional info: Abd pain TECHNIQUE: Imaging protocol: US abdomen. Real time ultrasound with image documentation. Limited exam focused on the right upper quadrant. COMPARISON: US Abdomen* [id number] 07/16/2017 9:33 AM FINDINGS: Liver: Echogenic fatty liver. No focal lesions identified. Gallbladder: The gallbladder is partially filled. No stones. No wall thickening or pericholecystic fluid. Common bile duct: The common bile duct is normal in caliber measuring less than 3 mm near the liver hilum. Pancreas: The pancreas is poorly visualized. Right kidney: The right kidney measures 11.3 x 4.0 x 5.0 cm. Overall normal cortical thickness and echogenicity. No hydronephrosis. No visualized stones or lesions. Aorta: Visualized aorta normal in caliber. Inferior vena cava: Visualized IVC patent. US/US gall bladder [id number] IMPRESSION: 1. No acute findings. 2. Mild hepatic steatosis. Radiation Dose CTDIVOL = (mGy): DLP = (mGy-cm) Dictated By:Daniel Yi MDSigned By:Daniel Yi MDSigned Date/Time:01/25/21 1230 Ordering Provider/Ordering MD: Bruce Galeas MD Date of Service: 02/03/21 Procedure(s): CT abdomen pelvis w con* [id number] Accession Number(s): [id number] Report Number: [id number] PROCEDURE INFORMATION: Exam: CT Abdomen And Pelvis With Contrast Exam date and time: 02/03/2021 4:10 AM Age: 70 years old Clinical indication: Abdominal pain; Localized; Right; Prior surgery; Surgery date: 6+ months; Surgery type: Appy; Additional info: Abd pain TECHNIQUE: Imaging protocol: Computed tomography of the abdomen and pelvis with contrast. Radiation optimization: All CT scans at this facility use at least one of these dose optimization techniques: automated exposure control; mA and/or kV adjustment per patient size (includes targeted exams where dose is matched to clinical indication); or iterative reconstruction. Contrast material: OMNI 300; Contrast volume: 95 ml; Contrast route: INTRAVENOUS (IV); COMPARISON: CT Abdomen/Pelvis Renal [id number] 03/01/2018 4:05 AM RADIATION DOSE METRICS: Total DLP (mGy-cm): 1804.42 FINDINGS: Diaphragm: Small hiatal hernia. Liver: Fatty liver. Gallbladder and bile ducts: No calcified stones. No ductal dilation. Pancreas: No ductal dilation. Spleen: No splenomegaly. Adrenal glands: Normal. No mass. Kidneys and ureters: No hydronephrosis. Stomach and bowel: There is a focus of extraluminal inflammation with central fat density along the anterior aspect of the cecum in the right lower quadrant. This is consistent with acute epiploic appendagitis. No dilated bowel loops. No high-grade obstruction. Appendix: The appendix is not identified and per history may be surgically absent. There are no pericecal or right lower quadrant inflammatory changes. Intraperitoneal space: No free air. No significant fluid collection. Vasculature: There are multiple pelvic phleboliths. Lymph nodes: No enlarged lymph nodes. Urinary bladder: Unremarkable as visualized. Reproductive: Unremarkable as visualized. Bones/joints: Unremarkable. No acute fracture. Soft tissues: Unremarkable. CT/CT abdomen pelvis w con* [id number] IMPRESSION: There is a focus of extraluminal inflammation with central fat density along the anterior aspect of the cecum in the right lower quadrant. This is consistent with acute epiploic appendagitis. Radiation Dose CTDIVOL = (mGy): DLP = 1804.42 (mGy-cm) Dictated By:Gabriella Payne MDSigned By:Gabriella Payne MDSigned Date/Time:02/03/21 0619 Lab Data: Attestation: I reviewed the patient's lab results. Labs: Lab Results 02/07/21 02/07/21 02/07/21 14:20 Unknown Unknown WBC 9.1 10^3/uL 10^3/ uL (4.0-10.0) RBC 4.00 10^6/uL L 10 ^6/uL (4.1-5.3) Hgb 12.6 g/dL g/dL (11.5-15.3) Hct 40.5 % % (37.0-47.0) MCV 101.3 fl H fl (81-99) MCH 31.5 pg pg (28.0-34.0) MCHC 31.1 g/dL g/dL (30.0-36.0) RDW 12.3 % % (12.1-15.1) Plt Count 250 10^3/cmm 10^3 /cmm (130-400) MPV 10.1 fL fL (7.4-10.4) Neut % (Auto) 70.5 % % Lymph % (Auto) 20.0 % % [place] % (Auto) 5.9 % % Eos % (Auto) 2.4 % % Baso % (Auto) 0.6 % % Neut # (Auto) 6.40 10^3/uL 10^3 /uL (1.8-7.7) Lymph # (Auto) 1.8 10^3/uL 10^3/ uL (0.8-4.8) [place] # (Auto) 0.5 10^3/uL 10^3/ uL (0.2-0.9) Eos # (Auto) 0.2 10^3/uL 10^3/ uL (0.0-0.8) Baso # (Auto) 0.1 10^3/uL 10^3/ uL (0.0-0.1) Nucleated RBC % (a uto) 0 % % Nucleated RBCs # 0.0 /100WBC /100W BC Sodium 138 mmol/L mmol/L (136-145) Potassium 4.4 mmol/L mmol/L (3.5-5.1) Chloride 103 mmol/L mmol/L (98-107) Carbon Dioxide 27 mmol/L mmol/L (22-29) Anion Gap 12.4 (5-19) BUN 8 mg/dL mg/dL (8-23) Creatinine 0.9 mg/dL mg/dL (0.5-0.9) GFR Calculation 62.1 mL/min L mL/ min (90-130) Glucose 200 mg/dL H mg/dL (65-115) Calculated Osmolal ity 290 mOsm/kg mOsm/ kg (285-295) Calcium 9.0 mg/dL mg/dL (8.5-10.5) Total Bilirubin 0.2 mg/dL mg/dL (0.15-1.2) AST 13 U/L U/L (0-32) ALT 10 U/L U/L (0-33) Alkaline Phosphata se 103 IU/L IU/L (35-105) Total Protein 7.3 g/dL g/dL (6.6-8.7) Albumin 4.0 g/dL g/dL (3.5-5.2) Globulin 3.3 g/dL g/dL (1.3-4.6) Lipase 27 U/L U/L (13-60) Urine Color Straw (Yellow) Urine Appearance Clear (CLEAR) Urine pH 8 H (5-7) Ur Specific Gravit y 1.010 (1.005-1.030) Urine Protein Neg (Negative) Urine Glucose (UA) Norm (Normal) Urine Ketones Negative (Negative) Urine Blood Neg (Negative) Urine Nitrate Negative (Negative) Urine Bilirubin Neg (Negative) Prot Sulfosalicyli c Acd Negative (Negative) Urine Urobilinogen Norm mg/dL mg/dL (Negative) Ur Leukocyte Cally ase Negative (Negative) Imaging Data ^: KUB: Attestation: I personally reviewed and interpreted this imaging study as follows: My impression: Mildly dilated small bowel. No obstruction. Discharge Plan Discharge Prescriptions: No Action famotidine 40 mg tablet 40 mg PO DAILY RF: 0 sucralfate [Carafate] 1 gram tablet 1 g PO TID 30 Days Qty: 90 RF: 2 pantoprazole [Protonix] 40 mg tablet,delayed release (DR/EC) 40 mg PO BID 14 Days Qty: 28 RF: 0 hydrocodone-acetaminophen 5-325 mg tablet 1 tab PO Q6H PRN (Reason: pain) 7 Days Qty: 20 RF: 0 Januvia 50 mg tablet 50 mg PO DAILY RF: 0 montelukast 10 mg tablet 10 mg PO DAILY RF: 0 hydrocodone-acetaminophen 5-325 mg tablet 1 tab PO Q6H PRN (Reason: pain) Qty: 20 RF: 0 Zofran 4 mg tablet 4 mg PO Q6H PRN (Reason: nausea and vomiting) Qty: 15 RF: 0 ondansetron 4 mg tablet,disintegrating 4 mg PO Q6H PRN (Reason: nausea and vomiting) Qty: 14 RF: 0 buspirone 5 mg Tablet 5 mg PO BID RF: 0 cetirizine 10 mg Tablet 10 mg PO DAILY RF: 0 alprazolam 1 mg Tablet 1 mg PO TID PRN (Reason: Anxiety) RF: 0 sumatriptan succinate [Imitrex] 100 mg Tablet 100 mg PO Q2H PRN (Reason: Headache) RF: 0 simvastatin 10 mg Tablet 10 mg PO DAILY RF: 0 atenolol 25 mg Tablet 25 mg PO DAILY RF: 0 amitriptyline 50 mg tablet 25 mg PO DAILY RF: 0 levothyroxine 75 mcg Tablet 75 mcg PO DAILY RF: 0 bisacodyl 5 mg Tablet 5 mg PO DAILY RF: 0 duloxetine [Cymbalta] 60 mg Capsule,Delayed Release(Dr/Ec) 60 mg PO BID RF: 0 aripiprazole [Abilify] 2 mg Tablet 2 mg PO DAILY RF: 0 diclofenac sodium 1 % Gel 2 g TOPICAL QID RF: 0 cholecalciferol (vitamin D3) [Vitamin D3] 125 mcg (5,000 unit) Tablet 125 mcg PO UNK RF: 0 tramadol 50 mg Tablet 50 mg PO Q6H PRN (Reason: Pain) RF: 0 Coding Level of Care Code ED Personal Injury Legal Assistant for Chg Fwd Exam Comprehensive
[2021-02-07 14:35] LABS: Basophils # 0.1 10^3/uL (0.0-0.1); Basophils % 0.6 %; Eosinophils # 0.2 10^3/uL (0.0-0.8); Eosinophils % 2.4 %; Hematocrit 40.5 % (37.0-47.0); Hemoglobin 12.6 g/dL (11.5-15.3); Lymphocytes # 1.8 10^3/uL (0.8-4.8); Mean Corpuscular HGB Conc 31.1 g/dL (30.0-36.0); Mean Corpuscular Hemoglobin 31.5 pg (28.0-34.0); Mean Corpuscular Volume 101.3 fl (81-99); Mean Platelet Volume 10.1 fL (7.4-10.4); Monocytes # 0.5 10^3/uL (0.2-0.9); Monocytes % 5.9 %; Neutrophils % 70.5 %; Nucleated Red Blood Cells % 0 %; Platelet Count 250 10^3/cmm (130-400); Red Cell Distribution Width 12.3 % (12.1-15.1); White Blood Count 9.1 10^3/uL (4.0-10.0)
[2021-02-07 14:52] LABS: Add Urine Microscopic? NO; Charge for UA Resulting for Rev
[2021-02-07 14:56] LABS: Bilirubin Urine Neg (Negative); Blood Urine Neg (Negative); Glucose Urine UA Norm (Normal); Ketones Urine Negative (Negative); Leukocyte Esterase Urine Negative (Negative); Nitrate Urine Negative (Negative); Protein Urine Neg (Negative); Sulfosalicylic Acid Urine Negative (Negative); Urine Appearance Clear (CLEAR); Urine Color Straw (Yellow); Urobilinogen Urine Norm (Negative); pH Urine 8 (5-7)
[2021-02-07] MEDS: ondansetron 2 mg/ML SDV 2 mL 4 MG IVP (14:57)
[2021-02-07] MEDS: sodium chloride 0.9% 500 ML IV (14:58)
[2021-02-07 15:15] LABS: Alanine Aminotransferase 10 U/L (0-33); Alkaline Phosphatase 103 IU/L (35-105); Anion Gap 12.4 (5-19); Aspartate Amino Transferase 13 U/L (0-32); Blood Urea Nitrogen 8 mg/dL (8-23); Carbon Dioxide 27 mmol/L (22-29); Chloride 103 mmol/L (98-107); Globulin 3.3 g/dL (1.3-4.6); Glomerular Filtration Rate 62.1 mL/min (90-130); Glucose 200 mg/dL (65-115); Lipase 27 U/L (13-60); Osmolality Calculated 290 mOsm/kg (285-295); Potassium 4.4 mmol/L (3.5-5.1); Sodium 138 mmol/L (136-145); Total Bilirubin 0.2 mg/dL (0.15-1.2); Total Protein 7.3 g/dL (6.6-8.7)
--- NOTE | 2021-02-07 15:44 | PC.NURSE ---
Pt arrived via POV with from home, pt reports she has been having lower right quadrant pain intermittently for the past 2 weeks with todays pain worsening. Pt states the pain radiates to her right flank area, pt rates pain 5/10, pt denies any vomiting, states over the past couple weeks she has been seen in the ER a couple times but they have not been able to find anything . Pt reports having a scan of her abdomen Feb 24 but was not going to wait until then to get to the bottom of this . Pt A/O, vss, pt placed on monitor.
[2021-02-07] MEDS: ketorolac 30 mg/mL INJ IVP (16:30)
== END 2021-02-07 16:51 | disposition home or self-care (01) ==
PROVIDERS: Emergency Provider Family Medicine; PCP Internal Medicine
DX: R10.9 Unspecified abdominal pain (principal); E11.9 Type 2 diabetes mellitus without complications
CPT/HCPCS: 74018; 80053; 81003; 83690; 85025; 96361; 96374; 96375; 99283; 99291; J1885; J2405; J7040

== ENCOUNTER 2021-03-11 07:24 | Outpatient (CLI) | payer MEDICARE, BC, SELFPAY ==
--- NOTE | 2021-03-11 07:30 | XRR_ITS ---
PROCEDURE INFORMATION: Exam: XR Abdomen Exam date and time: 03/11/2021 7:30 AM Age: 70 years old Clinical indication: Condition or disease; Kidney or ureter condition; Other: Urolithiasis TECHNIQUE: Imaging protocol: XR of the abdomen. Views: Frontal supine view of the abdomen. 1 View. COMPARISON: CR XR KUB portable [id number] 02/07/2021 2:18 PM FINDINGS: Gastrointestinal tract: Normal. No bowel dilation. There is moderate colonic fecal stasis in the cecum and ascending colon. The bowel gas pattern is otherwise unremarkable Bones/joints: Unremarkable. Other findings: Multiple phleboliths seen within the pelvis. Negative for radiodense urinary tract stones XR/XR KUB 10300 IMPRESSION: 1. Negative for acute GI abnormalities. 2. Negative for radiodense urinary tract stones Radiation Dose CTDIVOL = (mGy): DLP = (mGy-cm)
== END 2021-03-11 07:25 | disposition home or self-care (01) ==
LOC: RAD 07:27
PROVIDERS: PCP Internal Medicine; Visit Provider Urology
DX: N20.9 Urinary calculus, unspecified (principal); N20.1 Calculus of ureter
CPT/HCPCS: 74018; 81003; 87077; 87086; 87184

== ENCOUNTER → 2021-04-28 14:21 | Outpatient (BNVA) | payer MEDICARE, BC, SELFPAY | PROVIDERS: PCP Internal Medicine; Visit Provider Urology | DX: N39.0 Urinary tract infection, site not specified (principal) | CPT/HCPCS: 81003 ==

== ENCOUNTER → 2021-07-28 14:04 | Outpatient (BNVA) | payer MEDICARE, BC, SELFPAY | PROVIDERS: PCP Internal Medicine; Visit Provider Urology | DX: N39.0 Urinary tract infection, site not specified (principal) | CPT/HCPCS: 81003 ==

== ENCOUNTER 2021-09-04 13:01 | Outpatient (CLI) | payer MEDICARE, BC, SELFPAY ==
--- NOTE | 2021-09-04 13:26 | XR_ITS ---
WS: [id number], AP view, 09/04/2021 Clinical Data: CALCULUS OF UPPER URINARY TRACT Comparison: None. Findings: No abnormal intraabdominal masses or calcifications are seen. There is no dilatated small bowel or ev idence of obstruction. There are scattered densities to the left of the left L2 transverse process but these may be in the b owel rather than the left kidney. There are phleboliths in the true pelvis. XR/XR KUB [id number] Impression: Negative for definite renal or ureteral calculi.
== END 2021-09-04 13:02 | disposition home or self-care (01) ==
PROVIDERS: PCP Internal Medicine; Visit Provider Urology
DX: N20.9 Urinary calculus, unspecified (principal); N39.0 Urinary tract infection, site not specified
CPT/HCPCS: 74018; 81003; 99213

== ENCOUNTER 2021-12-25 13:46 | Outpatient (CLI) | payer MEDICARE, BC, SELFPAY ==
--- NOTE | 2021-12-25 13:55 | XR_ITS ---
WS: [id number] K[facility], AP view, 12/25/2021 Clinical Data: N20.9 - Urinary calculus, unspecified Comparison: KUB, 09/04/2021 Findings: No abnormal intraabdominal masses or calcifications are seen. There is no dilatated small bowel or ev idence of obstruction. There is fecal material throughout the colon obscuring detail over both kidneys. XR/XR KUB [id number] Impression: Negative KUB.
== END 2021-12-25 13:47 | disposition home or self-care (01) ==
LOC: RAD 13:50
PROVIDERS: PCP Internal Medicine; Visit Provider Urology
DX: N20.9 Urinary calculus, unspecified (principal); N39.0 Urinary tract infection, site not specified; R10.9 Unspecified abdominal pain; N39.46 Mixed incontinence; F41.9 Anxiety disorder, unspecified; M79.7 Fibromyalgia
CPT/HCPCS: 74018; 81003; 99213